=== PATIENT | female | born 1945 | race Caucasian/White ===

== ENCOUNTER → 2023-03-22 | Outpatient (CLI) | payer SELFPAY ==
--- NOTE | 2023-03-22 10:30 | RAD_ITS ---
STUDY: X-RAY CHEST REASON FOR EXAM: Female, 77 years old. 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 FINDINGS: Minor nonspecific interstitial thickening in the lower lobes. There is no demonstrated pleural abnormality. Normal size heart. Normal mediastinum and atif. Normal visualized pulmonary arteries. Mildly calcified aortic arch and descending thoracic aorta. Dorsal spine demonstrates mild spondylosis. Normal visualized ribs, clavicles, and shoulders. There is no demonstrated abnormality of the visualized soft tissue structures of the upper abdomen. RAD/Chest PA and Lateral IMPRESSION: Minor nonspecific interstitial thickening in the lower lobes.. Electronically Signed: Ambrose Barajas MD at 22:29 EST ,
[2023-03-22 12:21] LABS: Erythrocyte Sedimentation Rate 45 mm/hr (0-30)
[2023-03-22 12:24] LABS: Absolute Lymphocyte Count 3.55 X10^3/uL (0.83-4.51); Absolute Neutrophil Count 3.6 X10^3/uL (2.0-7.7); Basophil# 0.07 X10^3/uL; Basophil% 0.8 % (0-1); Eosinophil# 0.71 X10^3/uL; Eosinophils% 8.3 % (0-5); Hematocrit 38.7 % (37-47); Hemoglobin 12.2 g/dL (12.0-15.0); Lymphocyte # 3.55 X10^3/ul (0.83-4.51); Lymphocyte % 41.7 % (19-41); Mean Corp Hgb Conc 31.5 g/dL (32-36); Mean Corpuscular Volume 98.5 fL (81-99); Mean Platelet Vol. 10.2 fl (6.2-12.0); Monocyte# 0.62 X10^3/uL; Monocyte% 7.3 % (0-10); NRBC Flagged by Analyzer 0 % (0-5); Neutrophil # 3.55 X10^3/uL (2.7-7.7); Neutrophil % 41.7 % (47-70); Platelet Count 280 K/mm3 (150-450); RBC Distribution Width CV 13.9 % (11.6-14.6); RBC Distribution Width SD 51.1 fl (35.1-43.9); Red Blood Count 3.93 M/mm3 (4.2-5.4); White Blood Count 8.5 K/mm3 (4.4-11.0)
[2023-03-22 12:56] LABS: ALB/GLOB Ratio 0.8 RATIO (0.9-2.4); AST(SGOT) 25 U/L (15-37); Alanine Aminotransfer ALT/SGPT 28 U/L (13-56); Alkaline Phosphatase 77 U/L (45-117); Anion Gap 4 (5-15); BUN 28 mg/dL (7-18); BUN/Creat Ratio 21.5 RATIO (10-20); CRP 4.25 mg/L (0.0-3.0); Calcium,Total 9.7 mg/dL (8.5-10.1); Chloride 106 mmol/L (98-107); EST Glomerular Filtration Rate 42 mL/min (>60); Est Glom Filt Rate - Afr Amer 51 mL/min (>60); Globulin 4.8 g/dL (2.2-4.2); Glucose 101 mg/dL (74-106); Potassium 4.1 mmol/L (3.5-5.1); Protein, Total 8.8 g/dL (6.4-8.2); Sodium Level 138 mmol/L (136-145)
[2023-03-22 13:27] LABS: Hepatitis B Surface Antibody Non-Reactive; Hepatitis B Surface Antigen Non-Reactive (Nonreactive); Hepatitis C Antibody Non-Reactive (Nonreactive)
[2023-03-25 13:07] LABS: ANTINUCLEAR ANTIBODIES DIRECT Negative (Negative)
[2023-03-26 20:09] LABS: CCP IgG Antibodies 27 units (0-19); QNTFERON TB Mitogen Value > 10.00 IU/mL (.); QNTFERON TB Nil Value 0 IU/mL (.); QNTFERON TB1+ Ag Value 0 IU/mL (.); QNTFERON TB2+ Ag Value 0 IU/mL (.); QNTIFERON TB Positive Criteria Negative (Negative)
== END | disposition home or self-care (01) ==
PROVIDERS: PCP Family Medicine; Referring Provider Internal Medicine Rheumatology; Visit Provider Internal Medicine Rheumatology
DX: M06.09 Rheumatoid arthritis without rheumatoid factor, multiple sites (principal); Z79.899 Other long term (current) drug therapy; M17.0 Bilateral primary osteoarthritis of knee
CPT/HCPCS: 36415; 71046; 80053; 85025; 85652; 86038; 86140; 86200; 86431; 86480; 86706; 86803; 87340

== ENCOUNTER 2024-11-19 15:13 | Inpatient (IN) | payer SELFPAY, OTHER ==
[2024-11-19 15:38] VITALS: BP 151/71; PULSE 82; RESP 16; TEMP 36.9; O2SAT 96; BMI 28.3
[2024-11-19 16:33] VITALS: BMI 28.3
[2024-11-19 17:24] VITALS: BP 157/71; PULSE 82; RESP 16; TEMP 36.9; O2SAT 96
[2024-11-19 21:15] VITALS: PULSE 74; RESP 16; O2SAT 96; BMI 28.3
[2024-11-19] MEDS: Senna/Docusate Sodium 1 Tablet 2 TABLET PO (21:23)
[2024-11-19 22:00] VITALS: BP 138/76; PULSE 74; RESP 16; O2SAT 96
[2024-11-20] VITALS (9 sets, daily range): BP systolic 91–159; BP diastolic 52–79; PULSE 65–98; RESP 16–18; TEMP 36.8–37.2; O2SAT 93–98; BMI 28.3
[2024-11-20 05:58] LABS: Hematocrit 33.6 % (37-47); Hemoglobin 10.7 g/dL (12.0-15.0); Immature Granulocytes Count 0.040 X10^3/uL (0.0-0.0); Mean Corp Hgb Conc 31.8 g/dL (32-36); Mean Corpuscular Volume 106.7 fL (81-99); Mean Platelet Vol. 9.4 fl (6.2-12.0); NRBC Flagged by Analyzer 0 % (0-5); Platelet Count 270 K/mm3 (150-450); RBC Distribution Width CV 12.9 % (11.6-14.6); RBC Distribution Width SD 50.9 fl (35.1-43.9); Red Blood Count 3.15 M/mm3 (4.2-5.4); White Blood Count 10.2 K/mm3 (4.4-11.0)
[2024-11-20 06:14] LABS: Magnesium 2.6 mg/dL (1.5-2.2)
[2024-11-20 06:18] LABS: AST(SGOT) 22 U/L (<=31); Alanine Aminotransfer ALT/SGPT 8 U/L (<=34); Albumin, Serum 3.7 g/dL (3.4-4.8); Alkaline Phosphatase 69 U/L (35-104); Anion Gap 13 (5-15); BUN 29 mg/dL (4-19); BUN/Creat Ratio 21.1 RATIO (10-20); Calcium,Total 9.4 mg/dL (7.6-11.0); Carbon Dioxide 18.9 mmol/L (21.0-32.0); Chloride 105 mmol/L (98-108); Estimated Creatinine Clearance 31.20 ml/min (50-250); Globulin 3.6 g/dL (2.2-4.2); Glucose 87 mg/dL (70-99); Potassium 4.4 mmol/L (3.3-5.1)
--- NOTE | 2024-11-20 08:27 | EX.PCM.HP.RE ---
Documented by User: DARREN Florian 11/20/24 15:10 HPI - General General Date of Admission: 11/19/24 Date of Service: 11/20/24 Chief Complaint: debility following CVA HPI Narrative NICLO BLACK, is a 79 F who presents to the inpatient rehab unit from [facility] following CVA. She presented to their ED on 11/17/24, with R sided weakness. She had been, reportedly, weak for several days prior to admission. She did have a fall on 11/16/2024 which family believed to be from generalized weakness. Initial CT scan was negative for any acute processes. MRI/MRA of the brain demonstrated left basal ganglia acute infarct in the R internal capsule posterior limb 2. Right basal ganglia subacute infarct in the internal capsule posterior limb 3. A small signal abnormality in the left putamen. She had no corresponding restricted diffusion to suggest acute infarct. It was determined that she was not a tPA candidate. She was placed on dual antiplatelet therapy with Plavix and aspirin. She will continue to be on these for 21 days. A 30-day event monitor has been ordered to monitor for atrial fibrillation. She did experience high blood pressure during admission in which they initiated amlodipine and lisinopril. It appears that she does have remote history of hypertension but was not receiving any antihypertensive therapy, prior to hospitalization. These medications are new for her. She also has history of a arthritis, encephalitis and CKD III, per documentation. She did have blood work this morning showing a BUN of 29, a creatinine of 1.35 and a GFR of 39. These numbers are slightly improved compared to labs sent from previous hospital. Prior to admission the patient's hemoglobin was 11.2. Lab work this morning is significant for macrocytic anemia in which her hemoglobin is now 10.7. Will order stool Hemoccult to assist in evaluating anemia. Her lipid panel at [facility] did show HDLs of 87 and LDL was at 139 with a total cholesterol of 238. She was started on a statin by [facility]. Patient's echocardiogram at [facility] did show a EF of 60 to 65%, mild LVH and grade 1 diastolic. Mild aortic stenosis, peak and mean aortic the gradients 22 and 12 mmHg, mild MAC, mild LAE, mild TR. I met with Nicol in her room. She was sitting in a bedside recliner. She had been participating with therapies this morning. She states that at baseline she lives with her daughter and her family. She utilizes a walker to ambulate. She states that she has not been to [facility] and "2 months" she states that that is related to previous dizziness. She states that that dizziness has now resolved. She is hopeful to return to [facility] once she is discharged from rehab. She states that she does have a history of arthritis and has had bilateral knee replacements as well as a fractured humerus at the shoulder joint which she had repaired. She states that she does get pain in that shoulder intermittently. Nicol is eager to participate with therapies and is hopeful to return home. She is right-handed and her stroke did affect her right side. She is part of the [facility] community. She currently denies depression and states that she can see how she would get depressed but she does not allow herself. Nicol had no questions. Serum folate returned WNL at 17.4 and B12 WNL at 442. *Axela voice recognition software was utilized. Although all attempts were made to correct spelling and grammatical errors, there may be some inadvertently missed. 90 Minutes spent reviewing past diagnostic tests, lab results, vital sign trends, medical history, medications, all additional paperwork sent by the previous hospital, and ordering medications, examining the the patient and completing documentation. [facility] Medical History (Updated 11/20/24 @ 17:[address] Nicol Thomson, ) S/P stroke due to cerebrovascular disease Humerus distal fracture Rheumatoid arthritis Overweight (BMI 25.0-29.9) Encephalitis Mild aortic stenosis Stage 3 chronic kidney disease Hypertension Medical History no medical history no medical history (Arthritis) Home Medications Medication Instructions Recorded Last Taken Type acetaminophen 650 mg 650 mg PO Q8H PRN pain 11/19/24 Unknown History tablet,extended release (Arthritis Pain Relief (acetaminophen) ER) amlodipine 5 mg tablet 5 mg PO DAILY blood pessure 11/19/24 Unknown History aspirin 81 mg chewable tablet 1 tab PO DAILY heart 11/19/24 Unknown History atorvastatin 20 mg tablet (Lipitor) 20 mg PO QHS cholesterol 11/19/24 Unknown History clopidogrel 75 mg tablet (Plavix) 75 mg PO DAILY AFib 11/19/24 Unknown History hydroxychloroquine 200 mg tablet 200 mg PO BID arthritis 11/19/24 Unknown History lisinopril 20 mg tablet 20 mg PO DAILY blood pressure 11/19/24 Unknown History Allergy/AdvReac Type Severity Reaction Status Date / Time amoxicillin Allergy Unknown PT UNSURE Verified 11/19/24 15:36 OF REACTION oxycodone (From Percocet) Allergy Unknown PT UNSURE Verified 11/19/24 15:36 OF REACTION Family History unable to obtain no significant family history Surgical History (Updated 11/20/24 @ 17:[address] Nicol Thomson DO) History of open reduction and internal fixation (ORIF) procedure History of total knee arthroplasty Hx of cholecystectomy Surgical History no surgical history no surgical history (Patient has history of bilateral knee replacements. Right shoulder repair) Social History (Updated 11/20/24 @ 17:[address] Nicol Thomson DO) household members: spouse and other details: 's name is no housing: house number of children: 6 Smoking Status: Never smoker alcohol intake: never Prior Cardiac Testing/Procedures Prior Cardiac Testing/Procedures: Echocardiogram (See above HPI) ROS Constitutional Constitutional: Reports systems reviewed and no addt'l complaints, except as documented Eyes Eyes: Reports other Details: Cataracts ENT HEENT: Reports systems reviewed and no addt'l complaints, except as documented and halitosis Cardiovascular Cardiovascular: Reports systems reviewed and no addt'l complaints, except as documented and as per HPI Respiratory/Chest Respiratory/Chest: Reports systems reviewed and no addt'l complaints, except as documented Gastrointestinal Gastrointestinal: Reports systems reviewed and no addt'l complaints, except as documented Genitourinary Genitourinary: Reports systems reviewed and no addt'l complaints, except as documented Musculoskeletal Musculoskeletal: Reports joint stiffness and other Details: R shoulder repair from fall, bilateral knee replacements. Integumentary Integumentary: Reports systems reviewed and no addt'l complaints, except as documented Neurologic Neurologic: Reports weakness Psychiatric Psychiatric: Reports systems reviewed and no addt'l complaints, except as documented Endocrine Endocrinology: Reports systems reviewed and no addt'l complaints, except as documented Hematologic/Lymphatic Hematologic/Lymphatic: Reports easy bruising Allergic/Immunologic Allergic/Immunologic: Reports systems reviewed and no addt'l complaints, except as documented Vital Signs Vital Signs Vital Signs: 11/19/24 15:38 11/19/24 17:01 11/19/24 17:24 Temperature 98.5 F 98.5 F Temperature Source Temporal Temporal Pulse Rate 82 82 Pulse Strength Respiratory Rate 16 16 Respiratory Effort Normal Respiratory Depth Normal Respiratory Pattern Normal Blood Pressure 151/71 H 157/71 H Blood Pressure Mean 97 99 Blood Pressure Source Monitor Monitor Blood Pressure Position Semi-Fowlers Semi-Fowlers Blood Pressure Location Right Arm Left Arm Pulse Ox 96 96 Oxygen Delivery Method Room Air Room Air Room Air 11/19/24 21:15 11/19/24 21:15 11/19/24 22:00 Temperature Temperature Source Pulse Rate 74 74 Pulse Strength Normal (2+) Respiratory Rate 16 16 Respiratory Effort Normal Non-Labored Respiratory Depth Normal Respiratory Pattern Normal Blood Pressure 138/76 H Blood Pressure Mean 96 Blood Pressure Source Monitor Blood Pressure Position Supine Blood Pressure Location Right Arm Pulse Ox 96 96 Oxygen Delivery Method Room Air Room Air 11/20/24 05:00 Temperature 99.0 F Temperature Source Oral Pulse Rate 77 Pulse Strength Respiratory Rate 16 Respiratory Effort Respiratory Depth Respiratory Pattern Blood Pressure 159/71 H Blood Pressure Mean 100 Blood Pressure Source Monitor Blood Pressure Position Semi-Fowlers Blood Pressure Location Right Arm Pulse Ox 94 Oxygen Delivery Method Room Air Weight Weight: 160 lb 0.889 oz Body Mass Index (BMI) 28.3 Indicators for Scoring Admitted with or Primary Diagnosis of CVA/Stroke: Yes Hx of CVA/Stroke: Yes Modified Muse Score MRS Score at time of Evaluation: 4-Moderate/severe disability NIHSS NIHSS 1a. Level of Consciousness: 0 - Alert; keenly responsive 1b. LOC Questions: 0 - Answers BOTH questions correctly 1c. LOC Commands: 0 - Performs BOTH tasks correctly 2. Best Gaze: 0 - Normal 3. Visual: 0 - No visual loss 4. Facial Palsy: 1 - Minor paralysis (flattened nasolabial fold, asymmetry on smiling) 5a. Left Arm: 0 - No drift; arm holds 90 (or 45) degrees for full 10 seconds 5b. Right Arm: 1 - Drift; arm drifts downward but doesn’t hit the bed 6a. Left Le - No drift; leg holds 30-degree position for full 5 seconds 6b. Right Le - No effort against gravity; leg falls to bed immediately 7. Limb Ataxia: 2 - Present in 2 limbs 8. Sensory: 0 - Normal; no sensory loss 9. Best Language: 1 - [id number] aphasia; 10. Dysarthria: 1 = [id number] dysarthria; 11. Extinction and Inattention: 1 - Visual, tactile, auditory, spatial, or personal inattention; Total: 10 Physical Exam Const alert, oriented x3 and no apparent distress General Appearance: cooperative and well kempt Orientation / Consciousness: awake, oriented to person, oriented to place and oriented to time Exam Limitations: no limitations HEENT normocephalic Mouth: oral and palatal mucosa normal and other Other Details: Upper and lower dentures Eyes Eyes Narrative: Pupils are 4 mm with the left pupil being sluggish and the right pupil being brisk. Neck full ROM Lymph Lymphatic: no lymphadenopathy noted Chest inspection of chest normal Chest: symmetrical chest wall rise Resp normal respiratory effort, normal air movement, no use of accessory muscles and clear to auscultation bilaterally Effort and Inspection: able to speak in complete sentences Auscultation: clear to auscultation bilaterally Cardio regular rate and regular rhythm Rhythm: regular rhythm Heart Sounds: S1 normal and S2 normal Peripheral Pulses: pulses 2+ throughout GI normal to inspection, nondistended, normoactive bowel sounds Palpation: soft no CVA tenderness Back/Spine no CVA tenderness Extremity normal to inspection General Extremity: other findings Other Details: And hose in place Peripheral Pulses: Yes pulses 2+ throughout Skin no rashes or lesions noted Skin Narrative: Some bruising to bilateral forearms Neuro oriented x3 Neuro Narrative: See NIH Sensorium / Orientation: awake, alert, oriented to person, oriented to place and oriented to time Psych mental status grossly normal Appearance: well kempt Attitude: calm and engaged Activity / Motor Behavior: appropriate eye contact Results Lab / Micro Data Attestation: I reviewed the patient's lab results. Lab results narrative: Macrocytic anemia noted. Patient has history of CKD 3 and lab results are consistent with previous. 11/20/24 05:33 11/20/24 05:33 Labs: Laboratory Results - last 24 hr 11/20/24 05:33: WBC 10.2, RBC 3.15 L, Hgb 10.7 L, Hct 33.6 L, MCV 106.7 H, MCH 34.0 H, MCHC 31.8 L, RDW Std Deviation 50.9 H, RDW Coeff of Jennifer 12.9, Plt Count 270, MPV 9.4, Immature Gran % (Auto) 0.400, Neut % (Auto) 60.8, Lymph % (Auto) 26.6, Ashe % (Auto) 8.9, Eos % (Auto) 2.5, Baso % (Auto) 0.8, Absolute Neuts (auto) 6.2, Absolute Lymphs (auto) 2.71, Nucleated RBC % 0, Sodium 137, Potassium 4.4, Chloride 105, Carbon Dioxide 18.9 L, Anion Gap 13, BUN 29 H, Creatinine 1.35 H, Estim Creat Clear Calc 31.20 L, Est GFR (MDRD) Non-Af 39 L, BUN/Creatinine Ratio 21.1 H, Glucose 87, Calcium 9.4, Phosphorus 3.7, Magnesium 2.6 H, Total Bilirubin 0.36, AST 22, ALT 8, Alkaline Phosphatase 69, Total Protein 7.3, Albumin 3.7, Globulin 3.6, Albumin/Globulin Ratio 1.0 Imaging MRI/MRI results COMBINATION OPERATOR: Acute ischemic infarct involving the left basal ganglia and the internal capsule posterior limb. Subacute infarct in involving the left basal ganglia. Subacute and internal capsule posterior limb. Assessment & Plan Assessment/Plan (1) Debility: PLAN: *continue therapies *Fall precautions *Monitor I's and O's *Weekly weights *PT for gait stability *OT for ADLs *ST for evaluation *Bowel protocol (2) S/P stroke due to cerebrovascular disease: PLAN: *Plavix 75 mg p.o. daily *Aspirin 81 mg p.o. daily *DVT prophylaxis: Heparin 5000 units SQ every 12 hours *JOSE GUADALUPE hose *Monitor neurological status *Assess for anxiety and depression. 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 daily *Lisinopril 20 mg p.o. daily *Low-salt low-cholesterol cardiac diet (8) Hyperlipidemia: QUALIFIERS: Hyperlipidemia type: unspecified Qualified Code(s): E78.5 - Hyperlipidemia, unspecified PLAN: *Lipitor 20 mg p.o. nightly (9) Macrocytic anemia: PLAN: *Hemoccult stool *Serum B12 level *Serum folate level *Monitor CBC every 3 days (10) Encephalitis: (11) Rheumatoid arthritis: QUALIFIERS: Rheumatoid arthritis location: unspecified site (12) Overweight (BMI 25.0-29.9): (13) Mild aortic stenosis: (14) Stage 3 chronic kidney disease: QUALIFIERS: Chronic kidney disease stage 3 subtype: stage 3b (GFR 30-44) Qualified Code(s): N18.32 - Chronic kidney disease, stage 3b Charges/Coding Visit Charges Inpatient E&M: 33516 Init Hosp L2 Documented by User: Dr. Nicol Thomson DO 11/20/24 17:48 HPI - General General Date of Admission: 11/19/24 HPI Narrative NICOL BLACK, is a 79 F who presents to the inpatient rehab unit from [facility] following CVA. She presented to their ED on 11/17/24, with R sided weakness. She had been, reportedly, weak for several days prior to admission. She did have a fall on 11/16/2024 which family believed to be from generalized weakness. Initial CT scan was negative for any acute processes. MRI/MRA of the brain demonstrated left basal ganglia acute infarct in the R internal capsule posterior limb 2. Right basal ganglia subacute infarct in the internal capsule posterior limb 3. A small signal abnormality in the left putamen. She had no corresponding restricted diffusion to suggest acute infarct. It was determined that she was not a tPA candidate. She was placed on dual antiplatelet therapy with Plavix and aspirin. She will continue to be on these for 21 days. A 30-day event monitor has been ordered to monitor for atrial fibrillation. She did experience high blood pressure during admission in which they initiated amlodipine and lisinopril. It appears that she does have remote history of hypertension but was not receiving any antihypertensive therapy, prior to hospitalization. These medications are new for her. She also has history of a arthritis, encephalitis and CKD III, per documentation. She did have blood work this morning showing a BUN of 29, a creatinine of 1.35 and a GFR of 39. These numbers are slightly improved compared to labs sent from previous hospital. Prior to admission the patient's hemoglobin was 11.2. Lab work this morning is significant for macrocytic anemia in which her hemoglobin is now 10.7. Will order stool Hemoccult to assist in evaluating anemia. Her lipid panel at [facility] did show HDLs of 87 and LDL was at 139 with a total cholesterol of 238. She was started on a statin by [facility]. Patient's echocardiogram at [facility] did show a EF of 60 to 65%, mild LVH and grade 1 diastolic. Mild aortic stenosis, peak and mean aortic the gradients 22 and 12 mmHg, mild MAC, mild LAE, mild TR. I met with Nicol in her room. She was sitting in a bedside recliner. She had been participating with therapies this morning. She states that at baseline she lives with her daughter and her family. She utilizes a walker to ambulate. She states that she has not been to [facility] and "2 months" she states that that is related to previous dizziness. She states that dizziness has now resolved. She is hopeful to return to [facility] once she is discharged from rehab. She states that she does have a history of arthritis and has had bilateral knee replacements as well as a fractured humerus at the shoulder joint which she had repaired. She states that she does get pain in that shoulder intermittently. Nicol is eager to participate with therapies and is hopeful to return home. She is right-handed and her stroke did affect her right side. She is part of the [facility] community. She currently denies depression and states that she can see how she would get depressed but she does not allow herself. Nicol had no questions. Serum folate returned WNL at 17.4 and B12 WNL at 442. *Axela voice recognition software was utilized. Although all attempts were made to correct spelling and grammatical errors, there may be some inadvertently missed. 90 Minutes spent reviewing past diagnostic tests, lab results, vital sign trends, medical history, medications, all additional paperwork sent by the previous hospital, and ordering medications, examining the the patient and completing documentation. [facility] Medical History (Updated 11/20/24 @ 17:[address] Nicol Thomson, ) S/P stroke due to cerebrovascular disease Humerus distal fracture Rheumatoid arthritis Overweight (BMI 25.0-29.9) Encephalitis Mild aortic stenosis Stage 3 chronic kidney disease Hypertension Medical History no medical history Home Medications Medication Instructions Recorded Last Taken Type acetaminophen 650 mg 650 mg PO Q8H PRN pain 11/19/24 Unknown History tablet,extended release (Arthritis Pain Relief (acetaminophen) ER) amlodipine 5 mg tablet 5 mg PO DAILY blood pessure 11/19/24 Unknown History aspirin 81 mg chewable tablet 1 tab PO DAILY heart 11/19/24 Unknown History atorvastatin 20 mg tablet (Lipitor) 20 mg PO QHS cholesterol 11/19/24 Unknown History clopidogrel 75 mg tablet (Plavix) 75 mg PO DAILY AFib 11/19/24 Unknown History hydroxychloroquine 200 mg tablet 200 mg PO BID arthritis 11/19/24 Unknown History lisinopril 20 mg tablet 20 mg PO DAILY blood pressure 11/19/24 Unknown History Allergy/AdvReac Type Severity Reaction Status Date / Time amoxicillin Allergy Unknown PT UNSURE Verified 11/19/24 15:36 OF REACTION oxycodone (From Percocet) Allergy Unknown PT UNSURE Verified 11/19/24 15:36 OF REACTION Family History unable to obtain Surgical History (Updated 11/20/24 @ 17:[address] Nicol Thomson DO) History of open reduction and internal fixation (ORIF) procedure History of total knee arthroplasty Hx of cholecystectomy Surgical History no surgical history Social History (Updated 11/20/24 @ 17:[address] Nicol Thomson DO) household members: spouse and other details: 's name is no housing: house number of children: 6 Smoking Status: Never smoker alcohol intake: never ROS ENT HEENT: Reports abnormal hearing, vertigo and other Details: She has bilateral hearing aids. Denies dysphagia. Cardiovascular Cardiovascular: Reports other Details: Denies any syncopal episodes ; Denies chest pain, dyspnea at rest or leg edema Respiratory/Chest Respiratory/Chest: Denies cough, difficulty clearing secretions, dry cough or hemoptysis Gastrointestinal Gastrointestinal: Denies change in stool character, constipation, dysphagia, nausea or odynophagia Genitourinary Genitourinary: Denies dysuria Neurologic Neurologic: Reports abnormal gait, abnormal speech, disequilibrium, dizziness, focal weakness and other Details: She has had confusion and trouble with slow thought processing since she had Encephalitis in August. Indicators for Scoring Hx of CVA/Stroke: No NIHSS NIHSS Total: 10 Stroke Questions Stroke Team Activated: No Physical Exam HEENT head/scalp atraumatic HEENT Narrative: Has BL hearing aids. MM are dry. No thrush Eyes EOMs intact bilaterally, conjunctivae normal and no scleral icterus Eyes Narrative: Pupils are 4 mm with the left pupil being sluggish and the right pupil being brisk. No discharge from the eyes and no mattering of the eyelashes. General Eye: Negative for proptosis Neck supple, no meningeal signs, No nodes and no carotid bruits General: trachea midline Resp Resp Narrative: Decreased air exchange, paulo in the bases. Few coarse crackles in the bases. No wheezing. Not tachypneic, no cough and no conversational dyspnea. Cardio no rub and no gallops Cardio Narrative: No ectopy. she has a soft HEBER at the second RICS with no radiation to the LVOT, LLSB or apex. GI GI Narrative: No guarding with palpation. Denies constipation and diarrhea. Denies hematochezia. Extremity no calf tenderness and no pedal edema General Extremity: other findings Other Details: JOSE GUADALUPE daigle in place Psych denies hallucinations Psych Narrative: Slow to process information. Trouble word finding. Looks to her family to answer questions that I ask her when she can not come up with an answer. 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 Confused. Not fidgety, not restless. She is calm and pleasant. No agitation. Makes good eye contact with me and is engaged in the conversation. No history of anxiety or depression. 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 nightly (9) Macrocytic anemia: PLAN: *Hemoccult stool *Serum B12 level *Serum folate level (10) Encephalitis: (11) Rheumatoid arthritis: QUALIFIERS: Rheumatoid arthritis location: unspecified site (12) Overweight (BMI 25.0-29.9): (13) Mild aortic stenosis: (14) Stage 3 chronic kidney disease: QUALIFIERS: Chronic kidney disease stage 3 subtype: stage 3b (GFR 30-44) Qualified Code(s): N18.32 - Chronic kidney disease, stage 3b PLAN: Plan I reviewed the H&P done by the CURRENCY EXCHANGE SPECIALIST and also reviewed all the documentation we received from [facility]. I talked with the patient and her family and answered their questions. I examined the pt. I agree with the findings of the CURR[employer] EXCHANGE SPECIALIST and added a few details. We discussed the plan of care. PLAN PT for gait stability OT for ADL's ST for evaluation Analgesics as needed - she uses Tylenol extra strength for pain control at home and this is all she takes for arthritic pain. Bowel protocol Fall precautions Assess for Anxiety/Depression GI prophylaxis -not indicated at this time. She denies heartburn, epigastric pain, nausea/vomiting. She has no history of peptic ulcer disease. Hemoccult stool was ordered and it it is positive we will add a PPI since she is on dual antiplatelet agents. DVT prophylaxis with heparin 5000 units subcu every 12 hours Follow up with PCP, neurology following DC from [facility]. Will also need to follow up with cardiology if there is any PAF on the 30 day event monitor when it is removed. AM lab including CMP, CBC, Mag and Phos - personally reviewed. Folate and B12 are normal and she had a normal TSH within the past 6 months. Increase the statin to a high intensity statin.........changed atorvastatin to 40 mg. Heme stool ordered. Straight cath for a UA PVR's X 3. Recheck a BMP and CBC on Saturday. Will need a lipid panel and liver profile in 6 weeks. 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 Since she has had strokes on both sides of the brain I suspect they are embolic. Continue dual antiplatelet agents for a total of 3 weeks and then discontinue clopidogrel. Her dtr tells me that she was taken off her antihypertensives when she had meningoencephalitis this past summer because she was hypotensive. Charges/Coding Visit Charges Inpatient E&M: 68485 Init Hosp L3
[2024-11-20] MEDS: Heparin Injection (Vial) 5,000 UNIT/ML VIAL 5000 UNIT SC ×2 (09:20→22:25)
[2024-11-20] MEDS: Aspirin E.C. 81 MG Tablet PO (09:20)
[2024-11-20] MEDS: Senna/Docusate Sodium 1 Tablet 2 TABLET PO ×2 (09:20→22:27)
--- NOTE | 2024-11-20 10:51 | REHABEVAL_ITS ---
Documented by User: DARREN Florian 11/20/24 20:19 Admission Information Primary Diagnosis:: Debility related to CVA Status Changes from Prescreening?: No changes Identified Actual Problem List:: Falls, Mobility Impaired, Self Care Deficit, Know.Dfct/Disease Process, Know.Dfct of Medicaitons, BP, Hypertension, Fluid Change-Dehydration and Alteration-Leisure Activ. Potential Problem List:: DVT, Bleeding, Infection, UTI, Aspiration, Falls, Skin Integrity and Depression Risk of Complications DVT: LMWH (heparin) and JOSE GUADALUPE Hose Bleeding: Monitor Lab Values, Nursing to Teach Precautions for anti-coagulation therapy., Wound, if applicable, to be assessed every shift. and Stroke patients assessed for lethargy or change in status. Infection: Clinical Staff to Monitor for S/S of infection: and S/S of infection include fever, redness, warmth, etc. Urinary Tract Infection: Monitor for frequency, burning, discomfort, or incontinence. and Nursing will obtain urine sample for urinalysis and C&S when ordered. Aspiration: Clinical staff will monitor for coughing, drooling, congestion., Speech will evaluate swallowing and dsyphasia. and Nursing will monitor patient swallowing during meals. Falls: Patient will be evaluated for Fall Precautions and Patient will be placed on Fall Precautions as indicated per protocol. Skin Breakdown: Nursing will assess skin daily using assessment tool. and Nursing will place on Skin Breakdown Precautions as indicated. Pain: Clinical staff will assess patient's pain level per protocol., Medications will be given, if needed, and the pain level reassessed. and Other methods: Massage, distraction, decrease stimulus, etc. used PRN. Plan of Care Patient requires physician specializing in physical medicine and rehab oversight to provide close medical supervision of rehab issues including: Medical and co- morbidity Management, DVT prophylaxis and Coordination of treatment team Patient needs Physical Therapy: For a minimum of 1 hour and At least 5 out of 7 days Patient needs Physical Therapy to improve:: Mobility, Strengthening, Transfers, Stretching, ROM, Endurance, Stairs, Gait and Balance Patient needs Occupational Therapy: For a minimum of 1 hour and At least 5 out of 7 days Patient needs Occupational Therapy to improve ADL's incl.: Eating, Grooming, Bathing, Dressing, Toileting, Toilet transfers, Community Reintegration, Higher functioning activities, Household tasks, Adaptive Equipment, Splinting and Other activities as determined Patient requires speech therapy: For a minimum of 1 hour and At least 5 out of 7 days Patient requires speech therapy for: Swallowing, Cognition, Language Skills and Compensatory Strategies Patient requires 24/7 Rehabilitation Nursing for: Pain Issues, Identifying and preventing risk factors, Monitoring and reporting current medical conditions, Assisting with ambulation, transfer, and all ADL's, Teaching patients about disease process and medications, Family teaching, Providing safe environment, Bowel and Bladder Issues, Skin integrity and Medication Management Patient needs Desulphurizer Operator/ Case Management for: Discharge Planning, Arranging Home Equipment or Services and Family Interventions Patient needs Dietary and Nutrition Services for: Adequate Nutrition, Nutritional Supplements and Nutritional Education Goals Goals Patient will remain: free from falls and or injury at time of discharge. Patient will perform bed mobility at: MOD I level of assist. Patient will complete transfers from bed to chair at: MOD I level of assist. Patient will ambulate: 100 feet, with standby assist and with LRD Patient will complete upper body dressing at: Standby Assist. (Contact-guard assist) Patient will complete lower body dressing at: MOD I level of assist. (Min ass ist) Patient will complete toilet transfer at: Standby Assist. (Contact-guard assist) Patient will complete toileting at: Standby Assist. (Contact-guard assist) Patient will perform bathing at: MOD I level of assist. Patient will perform Tub/Shower transfer at: Standby Assist. Patient will complete grooming at: MOD I level of assist. Patient will complete home management skills at: Standby Assist. Patient will achieve: with standby assist and - (1 curb step) Patient will have pain level of: of 3 or less Patient's skin will: remain intact Patient will receive: adequate nutrition. Discharge Planning Pt Prognosis for Sig. Practical Improv. w/in Reasonable Time: Good Anticipated D/C Destination: Home Documented by User: Dr. Melisa Thomson DO 09/26/25 17:55 Admission Information Actual Problem List:: Cognitve Impr/Memory Loss and Bladder Incontinence Risk of Complications DVT: - (Heparin 5000 units SQ every 12 hours) Plan of Care Patient requires physician specializing in physical medicine and rehab oversight to provide close medical supervision of rehab issues including: Pain Management, Sleep Problems, Bowel and Bladder and Rehabilitation Leadership Goals Goals Patient will perform eating at: MOD I level of assist. Patient will complete transfers from bed to chair at: Standby Assist. Patient will ambulate: - (165 feet with least restrictive device at standby assist on various surfaces) Patient will complete upper body dressing at: - (Contact-guard assist) Patient will complete lower body dressing at: - (Min assist) Patient will complete toilet transfer at: - (Contact-guard assist) Patient will complete toileting at: - (Contact-guard assist) Patient will perform Tub/Shower transfer at: Standby Assist. Patient will achieve: - (6+1 steps at contact-guard assist with 1-2 handrails to allow access to her home.) Discharge Planning Estimated Length of stay (days): 28 Anticipated D/C Destination: Home with Home Health Was Preadmission Assessment Accurate?: Yes
[2024-11-20 11:11] LABS: Vitamin B12 442 pg/mL (180-914)
[2024-11-20 13:22] LABS: FOLATES,SERUM (FOLIC ACID) 17.90 ng/mL (4.60-34.80)
[2024-11-21 06:00] VITALS: BP 126/63; RESP 18; TEMP 37.7; O2SAT 97
[2024-11-21] MEDS: Senna/Docusate Sodium 1 Tablet 2 TABLET PO (07:56)
[2024-11-21] MEDS: Aspirin E.C. 81 MG Tablet PO (07:57)
[2024-11-21 08:00] VITALS: BP 114/71; PULSE 71
[2024-11-21 08:57] LABS: Mucous, Urine 0 SEEN /hpf (<or=2+); Red Blood Cells-Urine 0 SEEN /hpf (0-5)
[2024-11-21 08:59] LABS: Color, Urine Yellow (Yellow); Glucose, Dipstick Normal (Normal); Ketone-Dipstick Negative (Negative); Leukocyte Esterase-Dipstick 500 /ul (Negative); Nitrite-Dipstick Negative (Negative); Occult Blood-Urine 50 /ul (Negative); Protein-Dipstick 30 mg/dl (Negative); Specific Gravity, Urine 1.010 (1.002-1.030); Urine Bilirubin Dipstick Negative (Negative)
[2024-11-21 09:12] LABS: Squamous Epithelial Cells - UA 0-5 SEEN /hpf (5-10)
[2024-11-21] MEDS: Heparin Injection (Vial) 5,000 UNIT/ML VIAL 5000 UNIT SC ×2 (11:02→20:59)
[2024-11-21 13:07] VITALS: BP 121/62; PULSE 78
[2024-11-21 13:51] VITALS: BMI 28.3
[2024-11-21 18:00] VITALS: BP 126/57; PULSE 78; RESP 16; TEMP 37.2; O2SAT 97
[2024-11-21 22:00] VITALS: BP 128/71; PULSE 79; RESP 16; O2SAT 94
[2024-11-21 22:05] VITALS: PULSE 78; RESP 16; O2SAT 95
[2024-11-22 05:00] VITALS: BMI 28.3
[2024-11-22 06:00] VITALS: BP 146/75; PULSE 72; RESP 17; TEMP 36.6; O2SAT 100
[2024-11-22] MEDS: Aspirin E.C. 81 MG Tablet PO (07:41)
[2024-11-22 07:50] VITALS: BP 133/59; PULSE 70
[2024-11-22] MEDS: Heparin Injection (Vial) 5,000 UNIT/ML VIAL 5000 UNIT SC ×2 (09:23→20:40)
[2024-11-22] MEDS: Smz/Tmp Ds Tablet 1 TABLET PO ×2 (09:24→20:40)
[2024-11-22 14:00] VITALS: BP 102/56; PULSE 74
[2024-11-22 15:57] VITALS: BMI 28.3
[2024-11-22 17:59] VITALS: BP 112/59; PULSE 84; RESP 16; TEMP 36.9; O2SAT 98
[2024-11-22 20:20] VITALS: BMI 28.3
[2024-11-22] MEDS: Senna/Docusate Sodium 1 Tablet 2 TABLET PO (20:48)
[2024-11-22 20:50] VITALS: PULSE 83; RESP 16; O2SAT 96
[2024-11-22 22:00] VITALS: BP 115/59; PULSE 83
[2024-11-23 01:30] VITALS: PULSE 75; RESP 16; O2SAT 95
[2024-11-23 06:00] VITALS: BP 135/66; PULSE 77; RESP 16; TEMP 36.7; O2SAT 99
[2024-11-23 06:56] VITALS: BMI 28.0
[2024-11-23 07:52] LABS: Hematocrit 34.1 % (37-47); Hemoglobin 10.6 g/dL (12.0-15.0); Immature Granulocytes Count 0.030 X10^3/uL (0.0-0.0); Mean Corp Hgb Conc 31.1 g/dL (32-36); Mean Corpuscular Volume 106.6 fL (81-99); Mean Platelet Vol. 10.0 fl (6.2-12.0); NRBC Flagged by Analyzer 0 % (0-5); Platelet Count 297 K/mm3 (150-450); RBC Distribution Width CV 12.4 % (11.6-14.6); RBC Distribution Width SD 48.7 fl (35.1-43.9); Red Blood Count 3.20 M/mm3 (4.2-5.4); White Blood Count 8.8 K/mm3 (4.4-11.0)
[2024-11-23] MEDS: Heparin Injection (Vial) 5,000 UNIT/ML VIAL 5000 UNIT SC ×2 (08:04→21:44)
[2024-11-23] MEDS: Senna/Docusate Sodium 1 Tablet 2 TABLET PO ×2 (08:05→21:44)
[2024-11-23] MEDS: Aspirin E.C. 81 MG Tablet PO (08:05)
[2024-11-23] MEDS: Smz/Tmp Ds Tablet 1 TABLET PO (08:05)
[2024-11-23 08:20] LABS: Anion Gap 15 (5-15); BUN 47 mg/dL (4-19); BUN/Creat Ratio 25.3 RATIO (10-20); Calcium,Total 9.9 mg/dL (7.6-11.0); Carbon Dioxide 19.1 mmol/L (21.0-32.0); Chloride 104 mmol/L (98-108); Estimated Creatinine Clearance 22.39 ml/min (50-250); Glucose 90 mg/dL (70-99); Potassium 4.6 mmol/L (3.3-5.1)
--- NOTE | 2024-11-23 09:05 | PCM.PROGNOTE ---
Subjective Subjective Melisa was seen on team rounds today. Her son Lobito participated by phone. Afebrile VSS - Maintaining appropriate oxygen saturation on RA Oral intake - FOOD good FLUIDS urine outputs are not accurate secondary to urinary incontinence. The weight is down 2 pounds since admission. Discussed with nursing - nursing today reports she seems more confused and less aware and slower to answer questions than she was on Saturday. Reviewed the THERAPY notes Medication list reviewed. All lab from today was personally reviewed. The white blood cell count is down to 8.8 from 10.2. Differential is unremarkable. Hemoglobin is stable at 10.6 and platelets are within normal limits. The BUN is 47, up from 29 on 11/20/2024. Creatinine is 1.87 which is up from 1.35 on 11/20/2024. UA done on 11/20/2024 had 5-10 WBCs with +1 bacteria. Urine culture grew Proteus Hauseri that is resistant to ampicillin and nitrofurantoin. It is intermediately sensitive to ceftriaxone. She was started on Bactrim yesterday. Stool for occult blood was negative. Objective Data Objective Data Vital Signs: Vital Signs Temp Pulse Resp BP Pulse Ox O2 Del Method O2 Flow Rate 98.0 F 77 16 135/66 H 99 Nasal Cannula 2 11/23/24 06:00 11/23/24 06:00 11/23/24 06:00 11/23/24 06:00 11/23/24 06:00 11/23/24 06:00 11/23/24 06:00 FiO2 21 11/20/24 21:55 Oxygen Flow Rate (L/min) 2 Oxygen Delivery Method Nasal Cannula Weight: 158 lb 1.143 oz Body Mass Index (BMI) 28.0 Intake & Output: Intake and Output for Last 24 Hours 11/21/24 11/22/24 11/23/24 23:59 23:59 23:59 Intake Total 1505 / 1505 1420 / 1420 770 / 770 Output Total 650 / 650 675 / 675 Balance 855 / 855 745 / 745 770 / 770 Lab / Micro Data 11/23/24 07:33 11/23/24 07:33 Labs: Laboratory Results - last 24 hr 11/23/24 07:33: WBC 8.8, RBC 3.20 L, Hgb 10.6 L, Hct 34.1 L, MCV 106.6 H, MCH 33.1 H, MCHC 31.1 L, RDW Std Deviation 48.7 H, RDW Coeff of Jennifer 12.4, Plt Count 297, MPV 10.0, Immature Gran % (Auto) 0.300, Neut % (Auto) 60.1, Lymph % (Auto) 27.9, [place] % (Auto) 9.2, Eos % (Auto) 1.9, Baso % (Auto) 0.6, Absolute Neuts (auto) 5.3, Absolute Lymphs (auto) 2.45, Nucleated RBC % 0, Sodium 138, Potassium 4.6, Chloride 104, Carbon Dioxide 19.1 L, Anion Gap 15, BUN 47 H, Creatinine 1.87 H, Estim Creat Clear Calc 22.39 L, Est GFR (MDRD) Non-Af 27 L, BUN/Creatinine Ratio 25.3 H, Glucose 90, Calcium 9.9 Micro: Microbiology 11/20/24 18:50 Urine Catheter - Catheter Urine Culture - Final Proteus hauseri 11/20/24 16:10 Stool Stool Occult Blood (ROSALBA) - Final Physical Exam Const no apparent distress Constitutional Narrative: She is awake but, definitely slower to answer questions today. General Appearance: cooperative HEENT HEENT Narrative: MM are a little dry. Has had decent fluid intake in the past 3 days. No idea of what the urine OP has been since she is incontinent of urine. Resp normal respiratory effort, normal air movement and clear to auscultation bilaterally Resp Narrative: No cough with deep breathing. Effort and Inspection: Negative for tachypneic Cardio regular rate, regular rhythm, no rub and no gallops GI normal to inspection, nondistended, normoactive bowel sounds, soft to palpation and non-tender GI Narrative: No constipation. No guarding with palpation. No N/V/abd pain. Extremity no calf tenderness General Extremity: Negative for edema Skin Rashes: no rashes Wounds: Negative for wounds noted Assessment & Plan Assessment/Plan (1) Debility: (2) S/P stroke due to cerebrovascular disease: (3) 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: (4) Dysarthria: (5) Hemiplegia affecting right dominant side: QUALIFIERS: Hemiplegia type: flaccid Hemiplegia etiology: late effect of cerebrovascular disease Cerebrovascular disease type: cerebral infarction Qualified Code(s): I69.351 - Hemiplegia and hemiparesis following cerebral infarction affecting right dominant side (6) Aphasia complicating stroke: (7) Essential hypertension: (8) Hyperlipidemia: QUALIFIERS: Hyperlipidemia type: unspecified Qualified Code(s): E78.5 - Hyperlipidemia, unspecified (9) Macrocytic anemia: (10) Encephalitis: (11) Rheumatoid arthritis: QUALIFIERS: Rheumatoid arthritis location: unspecified site (12) Overweight (BMI 25.0-29.9): (13) Mild aortic stenosis: (14) Stage 3 chronic kidney disease: QUALIFIERS: Chronic kidney disease stage 3 subtype: stage 3b (GFR 30-44) Qualified Code(s): N18.32 - Chronic kidney disease, stage 3b (15) Acute renal failure superimposed on stage 3b chronic kidney disease: PLAN: Etiology not known at this time. W/U is in progress. PLAN: Plan 1. Continue therapy 2. Check another postvoid residual to ensure that she is not retaining and that is not the etiology of the elevated creatinine. I do not feel comfortable keeping her on Bactrim with the big jump in the creat. D/W pharm D. will DC Bactrim and change to Cefepime. She lists amoxicillin as an allergy but, does not know the reaction and although there is a chance of cross reactivity would prefer Cefepime to a FQ. Pharmacy will renally dose. 3. Recheck a BMP in the AM. 4. check orthostatics today. 5. Consider inserting a Abarca for accurate I&O for the next 48 hours. 6. renal US she scored only 16/50 on her BCAT. Family tells me that she has had some confusion since she had encephalitis in August of this year. Slow thought processing. [facility] Charges/Coding Visit Charges Inpatient E&M: 66480 Subs Hosp L2
[2024-11-23 11:19] VITALS: BMI 28.0
[2024-11-23 12:03] VITALS: BP 128/60; BP 128/66; BP 130/49; PULSE 77; PULSE 78; PULSE 85
--- NOTE | 2024-11-23 12:20 | US_ITS ---
PROCEDURE: KIDNEY AND BLADDER 11/23/2024 REASON FOR EXAM: ARF TECHNIQUE: Procedure Code: USKI Modality: US Procedure: KIDNEY AND BLADDER COMPARISON: none FINDINGS: Right kidney measures 6.8 cm and left kidney measures 8.7 cm. Atrophic right kidney with cortical thinning. Cortical thinning within the left kidney also noted. Normal echotexture of bilateral kidneys. Question trace right hydronephrosis. No renal stones. Cystic structure with septations noted within the midpole of the left kidney measuring 1.2 x 1.1 x 1.1 cm. Urinary bladder is unremarkable with terrell within. US/Kidney and Bladder IMPRESSION: Question trace right hydronephrosis. Atrophic right kidney. 1.2 cm complex cyst within the left kidney. No hydronephrosis of the left. Reading Location: [id number]
--- NOTE | 2024-11-23 12:49 | CASEMGMT ---
Social Work IDT met with patient at bedside for Team meeting. SW left VM for dtr, Nathalia, and there is not a different number for her . Pt selected to call son, Harjit, who participated via phone. Discussed patient's progress in PT/OT/ST/SN/MD/[facility] Liaison. Pt is admitted under her [facility] Fund 2, for initially at 7 days and IDT stated goal ELOS is about 21 days. [facility] Liaison to request additional funds. Son kept asking "are you talking to me?" with each report. Reiterated pt will need additional time for nursing and therapy care. SW will continue to follow for DC planning. Jessica Ewing USPS LETTER CARRIER [employer]LINE PILOT
[2024-11-23] MEDS: Cefepime HCl 2 GM in 0.9% Normal Saline (100mL MB+) 100 ML IV (13:29)
[2024-11-23] MEDS: 0.9% Normal Saline (500mL Bag) 500 ML 999 ML IV (13:35)
[2024-11-23] MEDS: 0.9% Normal Saline (1000mL) 1,000 ML 75 ML IV (14:50)
--- NOTE | 2024-11-23 15:59 | CHAPLAIN ---
Type of Pastoral Visit _x__ Initial Visit ___ Follow-up Visit ___ On-call Visit ___ General Patient Visit ___ Spiritual Assessment ___ Family Conference ___ Bereavement ___ Rapid Response ___ Code Blue ___ Other (describe below) Pastoral Care Referral From _x__ Patient ___ Family ___ Nurse ___ Physician ___ Telecommunications Cable Jointer ___ Phone Operator ___ Other (describe below) Sacrament/Intervention _x__ Active listening ___ Anointing ___ Cheondoism ___ Bereavement ___ Communion _x__ Jacki exploration ___ _x__ Life review _x__ Prayer ___ Reconciliation ___ Sacrament of Sick ___ Supportive presence ___ Wedding ___ Other (describe below) Pastoral Comments patient admits to disappointment that her progress is slow and minimal; pt does recognize the importance of having prayer and spiritual care support; pt reports having support from family and can name some blessings of life and from God that encourages her to persevere; pt welcomes prayer
[2024-11-23 17:41] VITALS: BP 137/68; PULSE 80; RESP 18; TEMP 37.2; O2SAT 95
[2024-11-23 20:26] VITALS: BMI 28.0
[2024-11-23 20:34] VITALS: PULSE 80; RESP 15; O2SAT 94
[2024-11-24 00:31] VITALS: RESP 16; O2SAT 97
[2024-11-24 00:40] VITALS: BP 132/66; PULSE 82; RESP 16; TEMP 37; O2SAT 97
[2024-11-24] MEDS: 0.9% Normal Saline (1000mL) 1,000 ML 75 ML IV ×2 (04:29→18:12)
[2024-11-24 05:50] VITALS: BP 126/56; PULSE 64; RESP 16; TEMP 36.4; O2SAT 96
[2024-11-24 06:00] VITALS: BMI 29.2
[2024-11-24] MEDS: Aspirin E.C. 81 MG Tablet PO (08:10)
[2024-11-24] MEDS: Heparin Injection (Vial) 5,000 UNIT/ML VIAL 5000 UNIT SC ×2 (08:11→20:44)
[2024-11-24] MEDS: Senna/Docusate Sodium 1 Tablet 2 TABLET PO ×2 (08:11→20:49)
[2024-11-24 08:43] LABS: Anion Gap 10 (5-15); BUN 37 mg/dL (4-19); BUN/Creat Ratio 21.7 RATIO (10-20); Calcium,Total 9.2 mg/dL (7.6-11.0); Carbon Dioxide 19.7 mmol/L (21.0-32.0); Chloride 109 mmol/L (98-108); Estimated Creatinine Clearance 24.78 ml/min (50-250); Glucose 81 mg/dL (70-99); Potassium 4.9 mmol/L (3.3-5.1)
[2024-11-24] MEDS: Cefepime HCl 2 GM in 0.9% Normal Saline (100mL MB+) 100 ML IV (10:03)
--- NOTE | 2024-11-24 11:08 | PCM.PROGNOTE ---
Subjective Subjective Day #2 cefepime Afebrile VSS - Maintaining appropriate oxygen saturation on RA Oral intake - FOOD mostly good. Last 2 meals has had mild decrease in appetite but she had food from her family. FLUIDS good oral fluid intake yesterday and she also received some IV fluids due to decreased urine output and increased creatinine.. Overnight she had 1100 in and 580. PVRs are negative. Discussed with nursing -continues to be incontinent of urine. Reviewed the THERAPY notes Medication list reviewed. Lab from this morning was personally reviewed. Sodium is 139 and the potassium is 4.9. The BUN is 37, down from 47 yesterday and the creatinine is 1.69, down from 1.87 yesterday. Creat at [place] ranged from 1.37 to 1.53. It was as low as 1.22 in August when she was admitted to the hospital with encephalitis. The only abnormal finding on CSF at that time was increased protein. All cultures and viral studies were negative. she received 8 days of Vanco and Rocephin and had several days of Acyclovir. Review of the notes we got from [facility] and [place] state she improved back to baseline. At baseline she is considered to have dementia. Ultrasound of the kidneys and bladder yesterday showed an atrophic right kidney with a complex cyst. The left kidney has cortical thinning. There was possible mild hydronephrosis of the right kidney. Urine analysis from the admission in August [address] [facility] and recent admission to [facility] show no evidence of urinary tract infection. Objective Data Objective Data Vital Signs: Vital Signs Temp Pulse Resp BP Pulse Ox O2 Del Method O2 Flow Rate 97.6 F L 64 16 126/56 H 96 Nasal Cannula 2 11/24/24 05:50 11/24/24 05:50 11/24/24 05:50 11/24/24 05:50 11/24/24 05:50 11/24/24 05:50 11/24/24 09:03 FiO2 21 11/20/24 21:55 Oxygen Flow Rate (L/min) 2 Oxygen Delivery Method Nasal Cannula Weight: 158 lb 1.143 oz Body Mass Index (BMI) 28.0 Intake & Output: Intake and Output for Last 24 Hours 11/22/24 11/23/24 11/24/24 23:59 23:59 23:59 Intake Total 1420 / 1420 2510 / 2510 1100 / 1100 Output Total 675 / 675 1450 / 1450 580 / 580 Balance 745 / 745 1060 / 1060 520 / 520 Lab / Micro Data 11/23/24 07:33 11/24/24 07:19 Labs: Laboratory Results - last 24 hr 11/24/24 07:19: Sodium 139, Potassium 4.9, Chloride 109 H, Carbon Dioxide 19.7 L, Anion Gap 10, BUN 37 H, Creatinine 1.69 H, Estim Creat Clear Calc 24.78 L, Est GFR (MDRD) Non-Af 30 L, BUN/Creatinine Ratio 21.7 H, Glucose 81, Calcium 9.2 Micro: Microbiology 11/20/24 18:50 Urine Catheter - Catheter Urine Culture - Final Proteus hauseri 11/20/24 16:10 Stool Stool Occult Blood (ROSALBA) - Final Radiography Diagnostic Testing: Radiology Impression Renal Ultrasound 11/23/24 12:20 IMPRESSION: Question trace right hydronephrosis. Atrophic right kidney. 1.2 cm complex cyst within the left kidney. No hydronephrosis of the left. Reading Location: [facility] Physical Exam Const alert Constitutional Narrative: Processing thoughts a little better today.......less staring. Always recognizes me. Can not tell me where she is or why she is here. Can not tell me the year or the month. She did tell nne that she is 79. She is cooperative with therapy. Doing better following commands today. Orientation / Consciousness: confused HEENT Mouth: dry mucous membranes Resp normal respiratory effort, normal air movement and clear to auscultation bilaterally Resp Narrative: No conversational dyspnea. No cough. Effort and Inspection: Negative for tachypneic or respiratory distress Cardio regular rate, regular rhythm, no rub and no gallops GI normal to inspection, nondistended, normoactive bowel sounds, soft to palpation and non-tender GI Narrative: No guarding with palpation. Extremity no calf tenderness General Extremity: Negative for edema Skin Rashes: no rashes Neuro Speech: speech normal Psych cooperative Psych Narrative: Pleasant and making good eye contact with me. Assessment & Plan Assessment/Plan (1) Debility: (2) S/P stroke due to cerebrovascular disease: PLAN: multiple BL strokes.......likely embolic. (3) 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: PLAN: acute on chronic cognitive dysfunction. Notes from previous hospital say she has dementia. (4) Dysarthria: (5) Hemiplegia affecting right dominant side: QUALIFIERS: Hemiplegia type: flaccid Hemiplegia etiology: late effect of cerebrovascular disease Cerebrovascular disease type: cerebral infarction Qualified Code(s): I69.351 - Hemiplegia and hemiparesis following cerebral infarction affecting right dominant side (6) Aphasia complicating stroke: (7) Essential hypertension: PLAN: Was on no meds prior to the recent CVA's. (8) Hyperlipidemia: QUALIFIERS: Hyperlipidemia type: unspecified Qualified Code(s): E78.5 - Hyperlipidemia, unspecified PLAN: Increase the statin to high intensity......40 mg of Atorvastatin (9) Macrocytic anemia: (10) Encephalitis: PLAN: I reviewed all documentation received from [facility] from August 2024 admission for acute encephalitis.......no pathogen was ever identified. The only CSF abnormality was increased proteing in the CSF. (11) Rheumatoid arthritis: QUALIFIERS: Rheumatoid arthritis location: unspecified site PLAN: Treated with Humira in the past but most recently on hydroxychloroquine. (12) Overweight (BMI 25.0-29.9): (13) Mild aortic stenosis: (14) Stage 3 chronic kidney disease: QUALIFIERS: Chronic kidney disease stage 3 subtype: stage 3b (GFR 30-44) Qualified Code(s): N18.32 - Chronic kidney disease, stage 3b (15) Acute renal failure superimposed on stage 3b chronic kidney disease: QUALIFIERS: Acute renal failure type: unspecified Qualified Code(s): N17.9 - Acute kidney failure, unspecified; N18.32 - Chronic kidney disease, stage 3b PLAN: Plan 1. Continue therapy 2. Decrease lisinopril to 10 mg daily because of the potassium being 4.9 today. Suspect due to the acute on chronic renal failure. 3. Finish the current bag of IV fluid and give 1 additional liter and then HL. 4. Recheck a BMP on morning. 5. Recommend follow up with neurology post DC to be evaluated for dementia and possible treament. 6. Goal LDL is 70 or less. Goal blood pressure is less than 135/80. 45 minutes was spent today reviewing the current chart and examining the patient and reviewing all the documentation form [facility] for her admit in August and also the recent admission and also reviewing all the documentation from [facility] from [place] admission. Charges/Coding Visit Charges Inpatient E&M: 17693 Subs Hosp L2
[2024-11-24 11:13] VITALS: BMI 28.0
[2024-11-24 18:00] VITALS: BP 146/66; PULSE 70; RESP 17; TEMP 36.7; O2SAT 96
[2024-11-24 19:57] VITALS: RESP 16; O2SAT 95
[2024-11-24 20:01] VITALS: BMI 28.0
[2024-11-24] MEDS: 0.9% Saline Lock 10 ML Syringe IV (20:45)
[2024-11-25 00:30] VITALS: RESP 15; O2SAT 6
[2024-11-25 05:51] VITALS: BP 132/67; PULSE 72; RESP 16; TEMP 37; O2SAT 96
[2024-11-25] MEDS: Aspirin E.C. 81 MG Tablet PO (08:23)
[2024-11-25] MEDS: Heparin Injection (Vial) 5,000 UNIT/ML VIAL 5000 UNIT SC ×2 (08:23→21:26)
[2024-11-25] MEDS: Senna/Docusate Sodium 1 Tablet 2 TABLET PO ×2 (08:23→21:28)
[2024-11-25] MEDS: Cefepime HCl 2 GM in 0.9% Normal Saline (100mL MB+) 100 ML IV (09:28)
[2024-11-25] MEDS: 0.9% Saline Lock 10 ML Syringe IV ×2 (09:29→21:28)
[2024-11-25] MEDS: 0.9% Normal Saline 250 ML IV.SOLN. IV (09:29)
[2024-11-25 14:56] VITALS: BMI 28.0
[2024-11-25 17:26] VITALS: BP 118/54; PULSE 75; RESP 16; TEMP 36.8; O2SAT 96
[2024-11-25 21:19] VITALS: BP 134/61; PULSE 75; RESP 16; TEMP 37; O2SAT 97
[2024-11-25 22:00] VITALS: PULSE 75; RESP 16; O2SAT 97
[2024-11-26 02:53] VITALS: BMI 28.0
[2024-11-26 06:00] VITALS: BP 126/59; PULSE 61; RESP 15; TEMP 36.6; O2SAT 92
--- NOTE | 2024-11-26 07:39 | PCM.PROGNOTE ---
Subjective Subjective Afebrile VSS -blood pressure is within goal. Heart rate has ranged from 61-75 over the past 24 hours. Maintaining appropriate oxygen saturation on RA while awake. She is on 2 L of nasal O2 at night when sleeping due to an abnormal overnight trending pulse ox and suspected DIMA. Oral intake - FOOD good FLUIDS fluid balance yesterday was -390. She only took 560 cc orally yesterday. Overnight she was -450. Discussed with nursing - no problems that need addressed Reviewed the THERAPY notes Medication list reviewed. Melisa denies cephalgia, vertigo, lightheadedness, chest pain, shortness of breath, cough, nausea/vomiting/abdominal pain and calf pain. She tells me she feels like she has to urinate but this is likely due to the presence of the Abarca catheter. The urine in the Abarca catheter is very pale yellow and clear. All lab from this morning was personally reviewed. Sodium is 136 and the potassium is 4.6. BUN is 34 which is down from 47 on 11/23/2024. The creatinine is at baseline today of 1.36 which is down from 1.87 on 11/23/2024 following IV fluids for hydration. Calcium is within normal limits. Objective Data Objective Data Vital Signs: Vital Signs Temp Pulse Resp BP Pulse Ox O2 Del Method O2 Flow Rate 97.9 F 61 15 126/59 H 92 Nasal Cannula 2 11/26/24 06:00 11/26/24 06:00 11/26/24 06:00 11/26/24 06:00 11/26/24 06:00 11/26/24 06:00 11/26/24 06:00 FiO2 21 11/20/24 21:55 Oxygen Flow Rate (L/min) 2 Oxygen Delivery Method Nasal Cannula Weight: 165 lb 5.547 oz Body Mass Index (BMI) 28.0 Intake & Output: Intake and Output for Last 24 Hours 11/24/24 11/25/24 11/26/24 23:59 23:59 23:59 Intake Total 3750 / 3750 1660 / 1660 150 / 150 Output Total 2480 / 2480 2050 / 2450 600 / 600 Balance 1270 / 1270 -390 / -790 -450 / -450 Lab / Micro Data 11/23/24 07:33 11/26/24 06:47 Micro: Microbiology 11/20/24 18:50 Urine Catheter - Catheter Urine Culture - Final Proteus hauseri 11/20/24 16:10 Stool Stool Occult Blood (ROSALBA) - Final Physical Exam Const alert Constitutional Narrative: Very pleasant and talkative. Makes good eye contact with me. She is now able to tell me the year, month, where she is and why she is here in rehab and her age today. Response time and mentation is better in the late morning and afternoon than it is in the early intervention specialist. General Appearance: cooperative HEENT HEENT Narrative: MM are moist today Resp normal respiratory effort and clear to auscultation bilaterally Resp Narrative: initially had a few coarse crackles in the bases but, this almost completely cleared after a few deep breaths. No cough with deep breathing. Effort and Inspection: Negative for tachypneic Cardio regular rate, regular rhythm, no rub and no gallops GI normal to inspection, nondistended, normoactive bowel sounds, soft to palpation, non-tender and non-distended GI Narrative: No guarding with palpation. Last bowel movement was yesterday. Extremity no calf tenderness General Extremity: Negative for edema Skin General Skin Exam: no breakdown Rashes: no rashes Psych cooperative and affect normal Psych Narrative: Making good eye contact. She is calm. No restlessness. Slow to process information. Assessment & Plan Assessment/Plan (1) Debility: (2) S/P stroke due to cerebrovascular disease: (3) 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: (4) Dysarthria: (5) Hemiplegia affecting right dominant side: QUALIFIERS: Hemiplegia type: flaccid Hemiplegia etiology: late effect of cerebrovascular disease Cerebrovascular disease type: cerebral infarction Qualified Code(s): I69.351 - Hemiplegia and hemiparesis following cerebral infarction affecting right dominant side (6) Aphasia complicating stroke: (7) Essential hypertension: (8) Hyperlipidemia: QUALIFIERS: Hyperlipidemia type: unspecified Qualified Code(s): E78.5 - Hyperlipidemia, unspecified (9) Macrocytic anemia: (10) Encephalitis: (11) Rheumatoid arthritis: QUALIFIERS: Rheumatoid arthritis location: unspecified site Rheumatoid factor presence: unspecified presence Qualified Code(s): M06.9 - Rheumatoid arthritis, unspecified (12) Overweight (BMI 25.0-29.9): (13) Mild aortic stenosis: (14) Stage 3 chronic kidney disease: QUALIFIERS: Chronic kidney disease stage 3 subtype: stage 3b (GFR 30-44) Qualified Code(s): N18.32 - Chronic kidney disease, stage 3b (15) Acute renal failure superimposed on stage 3b chronic kidney disease: QUALIFIERS: Acute renal failure type: unspecified Qualified Code(s): N17.9 - Acute kidney failure, unspecified; N18.32 - Chronic kidney disease, stage 3b PLAN: Creat today, 11/26/24, is back down to baseline following IV hydration. PLAN: Plan 1. Continue therapy 2. DC Tevin today and check a UA 3. discuss with family starting Aricept and having her follow up with neurology to be evaluated for dementia 4. Recheck BMP and a CBC on Saturday. 5. Needs a lot of encouragement to keep her fluid intake up. Charges/Coding Visit Charges Inpatient E&M: 24664 Subs Hosp L1
[2024-11-26 07:50] LABS: Anion Gap 10 (5-15); BUN 34 mg/dL (4-19); BUN/Creat Ratio 24.9 RATIO (10-20); Calcium,Total 9.8 mg/dL (7.6-11.0); Carbon Dioxide 20.3 mmol/L (21.0-32.0); Chloride 105 mmol/L (98-108); Estimated Creatinine Clearance 31.47 ml/min (50-250); Glucose 76 mg/dL (70-99); Potassium 4.6 mmol/L (3.3-5.1)
[2024-11-26] MEDS: Aspirin E.C. 81 MG Tablet PO (08:10)
[2024-11-26] MEDS: Heparin Injection (Vial) 5,000 UNIT/ML VIAL 5000 UNIT SC ×2 (08:11→21:21)
[2024-11-26] MEDS: Senna/Docusate Sodium 1 Tablet 2 TABLET PO ×2 (08:11→21:22)
[2024-11-26] MEDS: 0.9% Saline Lock 10 ML Syringe IV ×2 (09:12→21:22)
[2024-11-26] MEDS: Cefepime HCl 2 GM in 0.9% Normal Saline (100mL MB+) 100 ML IV ×2 (09:15→21:30)
[2024-11-26] MEDS: 0.9% Normal Saline 250 ML IV.SOLN. IV (09:19)
[2024-11-26 11:24] LABS: Mucous, Urine 0 SEEN /hpf (<or=2+); Red Blood Cells-Urine 0 SEEN /hpf (0-5)
[2024-11-26 11:29] LABS: Color, Urine Yellow (Yellow); Glucose, Dipstick Normal (Normal); Ketone-Dipstick Negative (Negative); Leukocyte Esterase-Dipstick Negative /ul (Negative); Nitrite-Dipstick Negative (Negative); Occult Blood-Urine 10 /ul (Negative); Protein-Dipstick 15 mg/dl (Negative); Specific Gravity, Urine 1.015 (1.002-1.030); Urine Bilirubin Dipstick Negative (Negative)
[2024-11-26 11:46] LABS: Squamous Epithelial Cells - UA 0-5 SEEN /hpf (5-10)
[2024-11-26 16:48] VITALS: BMI 28.0
[2024-11-26 18:00] VITALS: BP 127/78; PULSE 75; RESP 16; TEMP 36.2; O2SAT 97
[2024-11-26 20:30] VITALS: BP 124/57; PULSE 75; RESP 16; TEMP 37.5; O2SAT 96
[2024-11-26 22:00] VITALS: PULSE 75; RESP 16; O2SAT 96
[2024-11-27 02:31] VITALS: BMI 28.0
[2024-11-27 05:19] VITALS: BMI 28.3
[2024-11-27 06:00] VITALS: BP 130/67; PULSE 70; RESP 16; TEMP 37; O2SAT 97
[2024-11-27 06:53] VITALS: BMI 28.3
[2024-11-27 06:58] VITALS: O2SAT 97
[2024-11-27] MEDS: Senna/Docusate Sodium 1 Tablet 2 TABLET PO ×2 (07:55→22:08)
[2024-11-27] MEDS: Aspirin E.C. 81 MG Tablet PO (07:56)
[2024-11-27] MEDS: Heparin Injection (Vial) 5,000 UNIT/ML VIAL 5000 UNIT SC ×2 (07:56→22:09)
[2024-11-27 08:15] VITALS: BP 130/80; PULSE 75
[2024-11-27] MEDS: Cefepime HCl 2 GM in 0.9% Normal Saline (100mL MB+) 100 ML IV ×2 (10:00→22:09)
[2024-11-27] MEDS: 0.9% Saline Lock 10 ML Syringe IV ×3 (10:01→23:29)
[2024-11-27 11:06] VITALS: BMI 28.3
[2024-11-27 13:00] VITALS: BP 118/60; PULSE 70
[2024-11-27 18:00] VITALS: BP 102/58; PULSE 62; RESP 17; TEMP 36.6; O2SAT 97
[2024-11-27 23:34] VITALS: O2SAT 99
[2024-11-28 05:50] VITALS: BP 141/70; PULSE 71; RESP 17; TEMP 37.1; O2SAT 97
--- NOTE | 2024-11-28 09:22 | CT_ITS ---
PROCEDURE: BRAIN/HEAD WITHOUT CONTRAST 11/28/2024 REASON FOR EXAM: NOT RESPONDING CORRECTLY TECHNIQUE: Procedure Code: CTBR Modality: CT Procedure: BRAIN/HEAD WITHOUT CONTRAST Coronal and Sagittal reconstruction series were provided. One or more dose reduction techniques were used (e.g., Automated exposure control, adjustment of the mA and/or kV according to patient size, use of iterative reconstruction technique. RADIATION DOSE SUMMARY: DLP: 762.36 mGycm COMPARISON: None FINDINGS: Decreased attenuation in the villa-white matter and periventricular white matter junction. Old infarct involving the right basal ganglia. No acute intracranial hemorrhage midline shift or mass effect. The ventricles are normal in size and contour. There is no hydrocephalus. There is no midline shift. Posterior fossa is within normal limits. An empty sella is noted. Postsurgical changes noted in the eye globes. The sinuses are clear. There is slight deviation of the nasal septum to the right of midline. No acute air-fluid levels noted. Mastoid air cells are clear. No displaced fracture present. CT/Brain/Head without Contrast IMPRESSION: No acute intracranial abnormality. Old right basal ganglia infarct. Severe small-vessel ischemic changes. Reading Location: [id number]
[2024-11-28] MEDS: Heparin Injection (Vial) 5,000 UNIT/ML VIAL 5000 UNIT SC ×2 (09:56→22:25)
[2024-11-28 10:00] VITALS: RESP 12
[2024-11-28] MEDS: levETIRAcetam IV 1,000 MG/100 ML BAG 400 MG IV (10:01)
[2024-11-28] MEDS: 0.9% Normal Saline (1000mL) 1,000 ML 60 ML IV (10:02)
--- NOTE | 2024-11-28 10:09 | PCM.PROGNOTE ---
Subjective Subjective Pt became unresponsive this AM. Has been on Cefepime for UTI, Pharmacy recently increased dose when creat improved after IV fluids. Has know CRF stage 3b with recent exacerbation due to dehydration. VS stable.....not hypertensive. Not tachycardic. She is afebrile Pulse ox is 97% on room air. PERRL, Not responding to verbal stimuli. Withdraws to pain. Having rhythmic jerking/tremoring of the LUE which is new. no generalized tonic clonic activity. If I bend her arm at the elbow she is holding it up. No clonus. No posturing. Babinski equivocal on the Left. Lungs - CTA H- RRR with no ectopy abd - soft, no guarding, nl BS's no peripheral edema Stat CT head without contrast obtained.. Per radiology no acute intracranial abnormality with old right basal ganglia infarct. Severe small vessel ischemic changes. Objective Data Objective Data Vital Signs: Vital Signs Temp Pulse Resp BP Pulse Ox O2 Del Method O2 Flow Rate 98.7 F 71 17 141/70 H 97 Room Air 2 11/28/24 05:50 11/28/24 05:50 11/28/24 05:50 11/28/24 05:50 11/28/24 05:50 11/28/24 07:11 11/28/24 09:22 FiO2 21 11/20/24 21:55 Oxygen Flow Rate (L/min) 2 Oxygen Delivery Method Room Air Weight: 159 lb 9.835 oz Body Mass Index (BMI) 28.3 Intake & Output: Intake and Output for Last 24 Hours 11/26/24 11/27/24 11/28/24 23:59 23:59 23:59 Intake Total 2114 / 2115 1600 / 1600 100 / 100 Output Total 1620 / 2120 1600 / 1600 Balance 495 / -5 0 / 0 100 / 100 Lab / Micro Data 11/28/24 10:13 11/28/24 10:13 Micro: Microbiology 11/20/24 18:50 Urine Catheter - Catheter Urine Culture - Final Proteus hauseri 11/20/24 16:10 Stool Stool Occult Blood (ROSALBA) - Final Radiography Diagnostic Testing: Radiology Impression Brain CT 11/28/24 09:22 IMPRESSION: No acute intracranial abnormality. Old right basal ganglia infarct. Severe small-vessel ischemic changes. Reading Location: [facility] Assessment & Plan Assessment/Plan (1) Debility: (2) S/P stroke due to cerebrovascular disease: (3) 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: (4) Dysarthria: (5) Hemiplegia affecting right dominant side: QUALIFIERS: Hemiplegia type: flaccid Hemiplegia etiology: late effect of cerebrovascular disease Cerebrovascular disease type: cerebral infarction Qualified Code(s): I69.351 - Hemiplegia and hemiparesis following cerebral infarction affecting right dominant side (6) Aphasia complicating stroke: (7) Essential hypertension: (8) Hyperlipidemia: QUALIFIERS: Hyperlipidemia type: unspecified Qualified Code(s): E78.5 - Hyperlipidemia, unspecified (9) Macrocytic anemia: (10) Encephalitis: (11) Rheumatoid arthritis: QUALIFIERS: Rheumatoid arthritis location: unspecified site Rheumatoid factor presence: unspecified presence Qualified Code(s): M06.9 - Rheumatoid arthritis, unspecified (12) Overweight (BMI 25.0-29.9): (13) Mild aortic stenosis: (14) Stage 3 chronic kidney disease: QUALIFIERS: Chronic kidney disease stage 3 subtype: stage 3b (GFR 30-44) Qualified Code(s): N18.32 - Chronic kidney disease, stage 3b (15) Altered mental status: QUALIFIERS: Altered mental status type: stupor Qualified Code(s): R40.1 - Stupor PLAN: Suspect due to neurotoxicity due to Cefepime. CT brain negative for acute findings. (16) Seizure: PLAN: secondary to strokes? or to Cefepime. PLAN: Plan 1. Suspect neurotoxicity from Cefepime. It has been discontinued. 2. Keppra 1 GM IV ordered now and then start 250 mg IV Q12H in 12H. 3. NPO and start IV NS at 60 cc/hr 4. CBC with diff and a CMP now. 5. EEG ordered. 6. D/W dtr Nathalia and explained my suspicion. Will keep her on rehab for now. Confirmed code status is still DNRCCA with no intubation. Nathalia is OK with keeping her on rehab but, if she deteriorates will consider transfer to acute. 7. Re-evaluate in 1-2 hours. If she declines will get a tele-neurology consult. 8. Hold all oral medications. 9. Hydralazine 5 mg IV every 6 hours as needed systolic > 169 or diastolic > 89 Charges/Coding Visit Charges Inpatient E&M: 02484 Subs Hosp L2
[2024-11-28 10:34] LABS: Hematocrit 30.5 % (37-47); Hemoglobin 9.6 g/dL (12.0-15.0); Immature Granulocytes Count 0.030 X10^3/uL (0.0-0.0); Mean Corp Hgb Conc 31.5 g/dL (32-36); Mean Corpuscular Volume 104.5 fL (81-99); Mean Platelet Vol. 9.4 fl (6.2-12.0); NRBC Flagged by Analyzer 0 % (0-5); Platelet Count 347 K/mm3 (150-450); RBC Distribution Width CV 11.9 % (11.6-14.6); RBC Distribution Width SD 45.8 fl (35.1-43.9); Red Blood Count 2.92 M/mm3 (4.2-5.4); White Blood Count 6.9 K/mm3 (4.4-11.0)
--- NOTE | 2024-11-28 11:13 | NURSING ---
I went to see patient this AM. Only arrousable to painful stimuli, as such unable to follow commands, did say 's name once. Notified Dr. Thomson who ordered CT brain STAT. When she assessed the patient noted focal seizures, ordered EEG and Keppra.Vital signs and O2 status normal
[2024-11-28 11:33] LABS: AST(SGOT) 20 U/L (<=31); Alanine Aminotransfer ALT/SGPT 11 U/L (<=34); Albumin, Serum 3.8 g/dL (3.4-4.8); Alkaline Phosphatase 66 U/L (35-104); Anion Gap 11 (5-15); BUN 28 mg/dL (4-19); BUN/Creat Ratio 22.5 RATIO (10-20); Calcium,Total 9.9 mg/dL (7.6-11.0); Carbon Dioxide 20.4 mmol/L (21.0-32.0); Chloride 105 mmol/L (98-108); Estimated Creatinine Clearance 33.39 ml/min (50-250); Globulin 3.7 g/dL (2.2-4.2); Glucose 94 mg/dL (70-99); Potassium 4.7 mmol/L (3.3-5.1)
[2024-11-28 11:36] VITALS: BP 92/48; PULSE 62; RESP 16; TEMP 36.1; O2SAT 94
[2024-11-28 14:12] VITALS: BMI 28.3
[2024-11-28] MEDS: Dextrose 5%/0.9% NaCl 1,000 ML 60 ML IV (17:20)
--- NOTE | 2024-11-28 17:27 | NURSING ---
Discussed with Dr. Thomson the patient's blood sugar trend. Ordered D5NS and monitor blood sugar while NPO
[2024-11-28 18:00] VITALS: BP 138/63; PULSE 73; RESP 16; TEMP 37.1; O2SAT 99
[2024-11-28] MEDS: 0.9% Saline Lock 10 ML Syringe IV ×2 (19:32→22:30)
[2024-11-28 22:00] VITALS: RESP 17; O2SAT 97
[2024-11-28 22:13] VITALS: BP 144/64; PULSE 65; RESP 18; O2SAT 98
[2024-11-28] MEDS: 0.9% Normal Saline (250mL Bag) 250 ML 15 ML IV (22:30)
[2024-11-28] MEDS: levETIRAcetam IV 250 MG in 0.9% Normal Saline (100mL Bag) 100 ML 410 MG IV (22:32)
[2024-11-29 00:09] VITALS: PULSE 61; RESP 15; O2SAT 99
[2024-11-29 06:00] VITALS: BP 131/52; PULSE 58; RESP 16; TEMP 36.9; O2SAT 98
--- NOTE | 2024-11-29 08:43 | RAD_ITS ---
PROCEDURE: CHEST 1 VIEW (PORTABLE) 11/29/2024 REASON FOR EXAM: COUGHING TECHNIQUE: Frontal view of the chest. COMPARISON: 03/22/2023 FINDINGS: Hardware: Battery pack overlies the left chest wall Heart: Mild cardiomegaly. Atherosclerosis of the aorta. Lungs: No significant change in the appearance of the lungs. No focal consolidation or effusion. No pneumothorax. Bones: Mild multilevel disc disease. RAD/Chest 1 View (Portable) IMPRESSION: No acute cardiopulmonary process or significant interval change. Reading Location: [id number]
--- NOTE | 2024-11-29 09:14 | CT_ITS ---
PROCEDURE: CHEST WITHOUT CONTRAST 11/29/2024 REASON FOR EXAM: COUGH, RALES L BASE POSTERIORLY TECHNIQUE: Chest CT without contrast. Coronal and Sagittal reconstruction series were provided. One or more dose reduction techniques were used (e.g., Automated exposure control, adjustment of the mA and/or kV according to patient size, use of iterative reconstruction technique RADIATION DOSE SUMMARY: DLP: 399 mGycm COMPARISON: Available priors FINDINGS: Pulmonary parenchyma: Dependent atelectatic changes of the left base. No lobar consolidation. No suspicious pulmonary nodule or ground-glass opacity.. Airways: The central airways are patent. Pleural space: No pneumothorax or pleural effusion. Heart and pericardium: Coronary arterial calcifications. Calcifications of the mitral annulus and aortic leaflets. No pericardial effusion. Mediastinum and atif: Unremarkable. Thoracic vessels: Atherosclerosis. Mild ectasia of the ascending aorta without aneurysm. The descending aorta is of normal caliber. Osseous structures: No aggressive osseous lesion. Multilevel degenerative disc disease. Mild scoliosis. Upper visualized abdomen: Unremarkable. CT/Chest without Contrast IMPRESSION: Heavy coronary artery calcifications as well as calcifications of the mitral an nulus and aortic leaflets. Mild dependent atelectatic changes in the lower lobes, worse in the left base, without lobar consolidation, effusion or pneumothorax. Reading Location: [id number]
[2024-11-29] MEDS: Heparin Injection (Vial) 5,000 UNIT/ML VIAL 5000 UNIT SC ×2 (09:55→21:18)
[2024-11-29] MEDS: Dextrose 5%/0.9% NaCl 1,000 ML 60 ML IV (09:55)
[2024-11-29] MEDS: levETIRAcetam IV 250 MG in 0.9% Normal Saline (100mL Bag) 100 ML 410 MG IV ×2 (09:55→21:47)
[2024-11-29] MEDS: 0.9% Saline Lock 10 ML Syringe IV ×2 (10:03→21:47)
[2024-11-29 12:31] VITALS: BMI 28.3
--- NOTE | 2024-11-29 14:32 | NEURO.CONS ---
Assessment and Plan: Neuro Assessment/Plan NICOL BLACK is a 79 F with a past medical history of RA, possible history of unspecified encephalitis, CVA recently, being evaluated by Teleneurology for sudden alteration in mental status. Patient has new R sided weakness with new stroke - although stroke is bilateral in small vessel territories (R internal capsule and L basal ganglia). Patient on DAPT and CTH without any hemorrhage after the event. The event itself is more concerning for focal seizure. Patient has several inciting events that could lower seizure threshold including UTI, use of cefepime and toxicity, and stroke. Unclear that this constitutes epilepsy at this time. Plan: - agree with de-escalation of cefepime - agree with EEG - if EEG normal, recommend cont Keppra 500mg BID for 1 week to stabilize seizure threshold and then de-escalating. If EEG abnormal, rec continuing KEppra 500mg BID at least for 1 year - if no return to baseline weakness or improvement on this in next couple days, or event happens again, rec MRI Brain (given prior concern for encephalitis, would assess if a small vessel vasculitis is at play if MRI Brain with new small vessel lesions). I personally attended this patient and spent a total time of 45minutes evaluating this patient including clinical assessment, review of chart, medical history imaging, and determining appropriate treatment and workup. HPI Consult Data Date of Consult: 11/29/24 HPI Narrative HPI Narrative: NICOL BLACK, is a 79 F who presents to the inpatient rehab unit from [facility] following CVA. She presented to their ED on 11/17/24, with R sided weakness. She had been, reportedly, weak for several days prior to admission. She did have a fall on 11/16/2024 which family believed to be from generalized weakness. Initial CT scan was negative for any acute processes. MRI/MRA of the brain demonstrated left basal ganglia acute infarct in the R internal capsule posterior limb 2. Right basal ganglia subacute infarct in the internal capsule posterior limb 3. A small signal abnormality in the left putamen. She had no corresponding restricted diffusion to suggest acute infarct. It was determined that she was not a tPA candidate. She was placed on dual antiplatelet therapy with Plavix and aspirin. She will continue to be on these for 21 days. A 30-day event monitor has been ordered to monitor for atrial fibrillation. She did experience high blood pressure during admission in which they initiated amlodipine and lisinopril. It appears that she does have remote history of hypertension but was not receiving any antihypertensive therapy, prior to hospitalization. These medications are new for her. She also has history of a arthritis, encephalitis and CKD III, per documentation. She did have blood work this morning showing a BUN of 29, a creatinine of 1.35 and a GFR of 39. These numbers are slightly improved compared to labs sent from previous hospital. Prior to admission the patient's hemoglobin was 11.2. Lab work this morning is significant for macrocytic anemia in which her hemoglobin is now 10.7. Will order stool Hemoccult to assist in evaluating anemia. Her lipid panel at [facility] did show HDLs of 87 and LDL was at 139 with a total cholesterol of 238. She was started on a statin by [facility]. Patient's echocardiogram at [facility] did show a EF of 60 to 65%, mild LVH and grade 1 diastolic. Mild aortic stenosis, peak and mean aortic the gradients 22 and 12 mmHg, mild MAC, mild LAE, mild TR. Pt became unresponsive this AM. Has been on Cefepime for UTI, Pharmacy recently increased dose when creat improved after IV fluids. Has know CRF stage 3b with recent exacerbation due to dehydration. Neurologic History Patient yesterday was keeping her eyes closed not responding to noxious stim per nurse. Is improving and responding more now. Eyes closed would not open or respond. BP at that time was normal, BG was normal. Her eyes were concerned for being dilated. On discussion with Dr. Thomson and the nurse: Patient had her event around 8AM, nurse was called into the room and she was not responding. Dr. Thomson then noted L arm shaking and rhythmic jerking that went on for a few minutes. Stopped after 1 gram Keppra. She recently had her cefepime increased as renal function improved. The day after the increase, patient was slower to respond and the net day was the day she was unresponsive. She is greatly improved but still not returned to baseline. Per nurse, her baseline weakness was on the R side. Per Dr. Thomson, pt was being worked up for encephalitis in July (her CSF at that time per records was bland with just elevated protein - but unclear how elevated) but unclear if infectious or autoimmune. She has RA and was recently changed from humira to plaquenil. Neurologic Exam - NEURO: - Mental Status: Patient was awake, had hard time paying attention to the robot but attended appropriately to son and nurse Knows she is in hospital, but thinks it is the one she had the stroke in She has delayed answering of questions, appears to follow one step commands but has difficulty with more complex questions - EOMI horizontally, R nasolabial fold flattening - RUE with pronation, b/l UE with drift - LLE with drift and RLE antigravity strongly FTN intact b/l; HTS intact grossly Diminished sensation on the R leg PFSH Medical History (Updated 11/28/24 @ 12:[address] Nicol Thomson DO) S/P stroke due to cerebrovascular disease Humerus distal fracture Rheumatoid arthritis Overweight (BMI 25.0-29.9) Encephalitis Mild aortic stenosis Stage 3 chronic kidney disease Hypertension Medical History no medical history Home Medications Medication Instructions Recorded Last Taken Type acetaminophen 650 mg 650 mg PO Q8H PRN pain 11/19/24 Unknown History tablet,extended release (Arthritis Pain Relief (acetaminophen) ER) amlodipine 5 mg tablet 5 mg PO DAILY blood pessure 11/19/24 Unknown History aspirin 81 mg chewable tablet 1 tab PO DAILY heart 11/19/24 Unknown History atorvastatin 20 mg tablet (Lipitor) 20 mg PO QHS cholesterol 11/19/24 Unknown History clopidogrel 75 mg tablet (Plavix) 75 mg PO DAILY AFib 11/19/24 Unknown History hydroxychloroquine 200 mg tablet 200 mg PO BID arthritis 11/19/24 Unknown History lisinopril 20 mg tablet 20 mg PO DAILY blood pressure 11/19/24 Unknown History Allergy/AdvReac Type Severity Reaction Status Date / Time amoxicillin Allergy Unknown PT UNSURE Verified 11/19/24 15:36 OF REACTION oxycodone (From Percocet) Allergy Unknown PT UNSURE Verified 11/19/24 15:36 OF REACTION Family History unable to obtain Surgical History (Updated 11/20/24 @ 17:[address] Nicol Thomson DO) History of open reduction and internal fixation (ORIF) procedure History of total knee arthroplasty Hx of cholecystectomy Surgical History no surgical history Social History (Updated 11/20/24 @ 17:[address] Nicol Thomson DO) household members: spouse and other details: 's name is no housing: house number of children: 6 Smoking Status: Never smoker alcohol intake: never Vital Signs Vital Signs Vital Signs: 11/28/24 18:00 11/28/24 22:00 11/28/24 22:00 Temperature 98.7 F Temperature Source Temporal Pulse Rate 73 Pulse Strength Normal (2+) Respiratory Rate 16 17 Respiratory Effort Normal Non-Labored Respiratory Depth Respiratory Pattern Blood Pressure 138/63 H Blood Pressure Mean 88 Blood Pressure Source Blood Pressure Position Semi-Fowlers Blood Pressure Location Right Arm Pulse Ox 99 97 Oxygen Delivery Method Room Air Nasal Cannula Oxygen Flow Rate (L/min) 2 11/28/24 22:13 11/29/24 00:09 11/29/24 06:00 Temperature 98.5 F Temperature Source Temporal Pulse Rate 65 61 58 L Pulse Strength Respiratory Rate 18 15 16 Respiratory Effort Respiratory Depth Respiratory Pattern Blood Pressure 144/64 H 131/52 H Blood Pressure Mean 90 78 Blood Pressure Source Monitor Monitor Blood Pressure Position Semi-Fowlers Semi-Fowlers Blood Pressure Location Right Arm Right Arm Pulse Ox 98 99 98 Oxygen Delivery Method Nasal Cannula Nasal Cannula Nasal Cannula Oxygen Flow Rate (L/min) 2 2 2 11/29/24 07:16 11/29/24 10:00 11/29/24 10:00 Temperature Temperature Source Pulse Rate Pulse Strength Normal (2+) Respiratory Rate Respiratory Effort Normal Non-Labored Respiratory Depth Normal Respiratory Pattern Normal Blood Pressure Blood Pressure Mean Blood Pressure Source Blood Pressure Position Blood Pressure Location Pulse Ox Oxygen Delivery Method Nasal Cannula Nasal Cannula Oxygen Flow Rate (L/min) 2 2 Weight Weight: 72.4 kg Body Mass Index (BMI) 28.3 EEG Results Procedure Details EEG Procedure Details: NICOL BLACK is a 79 year old F with a past medical history of , who presents for evaluation of Electroencephalogram on DATE at TIME Lab / Micro Data 11/28/24 10:13 11/28/24 10:13 Labs: Laboratory Results - last 24 hr 11/28/24 16:38: POC Glucose 79 11/28/24 22:42: POC Glucose 88 11/29/24 06:38: POC Glucose 84 11/29/24 11:42: POC Glucose 88 Imaging Radiology Impression Chest X-Ray 11/29/24 08:43 IMPRESSION: No acute cardiopulmonary process or significant interval change. Reading Location: [facility] Chest CT 11/29/24 09:14 IMPRESSION: Heavy coronary artery calcifications as well as calcifications of the mitral annulus and aortic leaflets. Mild dependent atelectatic changes in the lower lobes, worse in the left base, without lobar consolidation, effusion or pneumothorax. Reading Location: [facility] ([place], [place]) Active Medications Active Medications Active Medications: Current Medications Generic Name Dose Route Start Last Admin Trade Name Freq PRN Reason Stop Dose Admin Acetaminophen 500 mg 11/19/24 17:04 11/25/24 21:36 Acetaminophen 500 Mg Tablet PO 500 mg On Hold: 11/28/24 10:24 Q6H PRN Administration PAIN33 Amlodipine Besylate 5 mg 11/20/24 10:00 11/28/24 10:00 Amlodipine 5 Mg Tablet PO Not Given On Hold: 11/28/24 10:24 DAILY [facility] Protocol Aspirin 81 mg 11/20/24 08:00 11/29/24 07:33 Aspirin E.C. 81 Mg Tablet PO 12/11/24 08:01 Not Given BREAKFAST [facility] Atorvastatin Calcium 40 mg 11/20/24 22:00 11/27/24 22:08 Atorvastatin Calcium 40 Mg Tablet PO 40 mg On Hold: 11/28/24 10:25 QHS LIBBY Administration Bisacodyl 10 mg 11/19/24 15:31 Bisacodyl 10 Mg Suppository RC X1 PRN Constipation Calamine/Phenol 1 applic 11/24/24 22:00 11/29/24 09:56 Menthol/Lanolin/Calamine/Znox 113 Gm Tube TOPICAL 1 applic BID LIBBY Administration Protocol Clopidogrel Bisulfate 75 mg 11/20/24 10:00 11/28/24 10:00 Clopidogrel Bisulfate 75 Mg Tablet PO Not Given On Hold: 11/28/24 10:26 DAILY [facility] Heparin Sodium (Porcine) 5,000 unit 11/20/24 10:00 11/29/24 09:55 Heparin Injection (Vial) 5,000 Unit/Ml Vial SC 5,000 unit Q12 LIBBY Administration Hydralazine HCl 5 mg 11/28/24 10:26 Hydralazine 20 Mg/Ml Vial IV Q6H PRN PRN SYS>169 BANDA>89 Protocol Hydroxychloroquine Sulfate 200 mg 11/19/24 22:00 11/28/24 10:00 Hydroxychloroquine 200 Mg Tablet PO Not Given On Hold: 11/28/24 10:26 BID LIBBY Sodium Chloride 250 mls @ 15 mls/hr 11/26/24 09:20 11/28/24 23:25 IV 0 mls/hr .[id number] PRN Infusion Saline Flush Sodium Chloride 250 mls @ 15 mls/hr 11/26/24 09:20 IV .[id number] PRN Additional IVPB Infusion Levetiracetam 250 mg/ Sodium 102.5 mls @ 410 mls/hr 11/28/24 22:00 11/29/24 10:10 Chloride IV Infused Q12 LIBBY Infusion Dextrose/Sodium Chloride 1,000 mls @ 60 mls/hr 11/28/24 17:00 11/29/24 09:55 Dextrose 5%/0.9% Nacl IV 60 mls/hr .[id number] LIBBY Administration Lisinopril 10 mg 11/25/24 10:00 11/28/24 10:01 Lisinopril 10 Mg Tablet PO Not Given On Hold: 11/28/24 10:25 DAILY LIBBY Protocol Magnesium Hydroxide 30 ml 11/19/24 15:31 Magnesium Hydroxide 30 Ml Udc PO X1 PRN Constipation Nystatin 1 applic 11/20/24 10:00 11/29/24 09:56 Nystatin Powder 15gm Bottle TOPICAL 1 applic BID LIBBY Administration Protocol Senna/Docusate Sodium 2 tablet 11/19/24 22:00 11/28/24 10:01 Senna/Docusate Sodium 1 Tablet PO Not Given On Hold: 11/28/24 10:25 BID LIBBY Sodium Chloride 10 - 40 ml 11/23/24 13:18 11/29/24 10:03 0.9% Saline Lock 10 Ml Syringe IV 30 ml UD PRN Administration SALINE FLUSH
[2024-11-29 17:18] VITALS: BP 138/61; PULSE 67; RESP 16; TEMP 36.9; O2SAT 99
[2024-11-29] MEDS: 0.9% Normal Saline (250mL Bag) 250 ML 15 ML IV (21:49)
[2024-11-29 22:00] VITALS: RESP 16; O2SAT 98
[2024-11-30 01:25] VITALS: PULSE 71; O2SAT 97
[2024-11-30] MEDS: Dextrose 5%/0.9% NaCl 1,000 ML 60 ML IV ×2 (02:37→19:58)
[2024-11-30 06:10] VITALS: BP 161/69; PULSE 63; RESP 16; TEMP 36.7; O2SAT 98
[2024-11-30 08:58] LABS: Hematocrit 33.5 % (37-47); Hemoglobin 10.4 g/dL (12.0-15.0); Mean Corp Hgb Conc 31.0 g/dL (32-36); Mean Corpuscular Volume 106.0 fL (81-99); Mean Platelet Vol. 9.4 fl (6.2-12.0); Platelet Count 306 K/mm3 (150-450); RBC Distribution Width CV 11.7 % (11.6-14.6); RBC Distribution Width SD 45.7 fl (35.1-43.9); Red Blood Count 3.16 M/mm3 (4.2-5.4); White Blood Count 8.2 K/mm3 (4.4-11.0)
[2024-11-30 09:29] VITALS: BP 166/66; PULSE 66
[2024-11-30] MEDS: Aspirin E.C. 81 MG Tablet PO (09:31)
[2024-11-30] MEDS: Senna/Docusate Sodium 1 Tablet 2 TABLET PO ×2 (09:31→21:49)
[2024-11-30] MEDS: Heparin Injection (Vial) 5,000 UNIT/ML VIAL 5000 UNIT SC ×2 (09:32→21:50)
[2024-11-30] MEDS: 0.9% Saline Lock 10 ML Syringe IV (09:54)
[2024-11-30] MEDS: levETIRAcetam IV 250 MG in 0.9% Normal Saline (100mL Bag) 100 ML 410 MG IV ×2 (09:54→21:50)
[2024-11-30 10:27] LABS: Anion Gap 11 (5-15); BUN 21 mg/dL (4-19); BUN/Creat Ratio 16.3 RATIO (10-20); Calcium,Total 9.6 mg/dL (7.6-11.0); Carbon Dioxide 20.0 mmol/L (21.0-32.0); Chloride 108 mmol/L (98-108); Estimated Creatinine Clearance 33.39 ml/min (50-250); Glucose 91 mg/dL (70-99); Potassium 4.8 mmol/L (3.3-5.1)
[2024-11-30 11:40] VITALS: BMI 28.3
--- NOTE | 2024-11-30 12:42 | CASEMGMT ---
Social Work IDT met with patient, dtr and son for Team meeting. 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 Pt had a change in condition the last few days and is very lethargic. Pt is currently totalx2 assist for all tasks since that decline. Pt is N3TWORK and has been approved for the time she needs. Pt's focus is medical at this time. SW will continue to follow and RETeam weekly. Jessica Ewing OPTOMETRY ASSISTANT LANDSCAPE LABORER
[2024-11-30 14:00] VITALS: BMI 28.6
--- NOTE | 2024-11-30 14:13 | PCM.PROGNOTE ---
Subjective Subjective Melisa was seen on team rounds today. Family was present in the room and all their questions were answered to their satisfaction. Afebrile VSS - Maintaining appropriate oxygen saturation on RA Oral intake - FOOD she ate 75 to 100% of her late breakfast this morning. She refused lunch. FLUIDS she is on IV fluids to maintain hydration. Discussed with nursing - no problems that need addressed Reviewed the THERAPY notes Medication list reviewed. Melisa woke up for me today and she recognize me although she cannot remember who I am. She told me it was 2024. She denies shortness of breath and she is not coughing. She denied cephalgia. She denied burning with urination and abdominal pain. When I asked her if she would like something to eat she told me coffee, toast and grape jelly. Her dtr fed her breakfast. No coughing and no drooling. All lab from today was personally reviewed. White blood cell count is normal at 8.2. Hemoglobin is stable at 10.4 and platelets are within normal limits. Sodium is 139 and the potassium is stable at 4.8. Serum bicarb is stable at 20. The BUN is down to 21 from 28 on Saturday and her creatinine is stable at 1.26 which is good for her. I personally reviewed the CT scan and also the radiology report. The CT shows atelectatic changes in the left base. There was no infiltrate, no effusion and no suspicious pulmonary nodules or ground glass opacities. She is no longer coughing and we are keeping the head of the bed a least 30 degrees. She had a bath with OT today and then ate breakfast and she is very tired now. She slept through the TEAM meeting. She has had no more rhythmic shaking of the LUE. she is moving all extremities. She is talking and told me that it is 2024. More responsive today than yesterday and is gradually improving. MM are moist. H - RRR, no gallop Lungs.......still with some coarse crackles in the L base but, less than yesterday. RR is within normal limits and the respirations are not labored. No wheezing. Not coughing today. The abdomen is soft and nondistended. She had no guarding with palpation and there are normal bowel sounds present. No ankle edema. She told her dtr that she feels like her L side is weaker but, I do not detect any significant decline since admission. I think the generalixed weakness is worse due to altered level of consciousness and inability to do therapy since . Objective Data Objective Data Vital Signs: Vital Signs Temp Pulse Resp BP Pulse Ox O2 Del Method O2 Flow Rate 98.0 F 66 16 166/66 H 98 Room Air 2 11/30/24 06:10 11/30/24 09:29 11/30/24 06:10 11/30/24 09:29 11/30/24 06:10 11/30/24 10:00 11/30/24 06:32 FiO2 21 11/20/24 21:55 Oxygen Flow Rate (L/min) 2 Oxygen Delivery Method Room Air Weight: 159 lb 9.835 oz Body Mass Index (BMI) 28.3 Intake & Output: Intake and Output for Last 24 Hours 11/28/24 11/29/24 11/30/24 23:59 23:59 23:59 Intake Total 755.25 / 755.25 1214.0 / 1214.0 1712.5 / 1712.5 Balance 755.25 / 755.25 1214.0 / 1214.0 1712.5 / 1712.5 Lab / Micro Data 11/30/24 08:43 11/30/24 08:43 Labs: Laboratory Results - last 24 hr 11/29/24 16:47: POC Glucose 89 11/29/24 22:15: POC Glucose 97 11/30/24 05:53: POC Glucose 91 11/30/24 08:43: WBC 8.2, RBC 3.16 L, Hgb 10.4 L, Hct 33.5 L, MCV 106.0 H, MCH 32.9 H, MCHC 31.0 L, RDW Std Deviation 45.7 H, RDW Coeff of Jennifer 11.7, Plt Count 306, MPV 9.4, Sodium 139, Potassium 4.8, Chloride 108, Carbon Dioxide 20.0 L, Anion Gap 11, BUN 21 H, Creatinine 1.26 H, Estim Creat Clear Calc 33.39 L, Est GFR (MDRD) Non-Af 43 L, BUN/Creatinine Ratio 16.3, Glucose 91, Calcium 9.6 11/30/24 11:07: POC Glucose 160 H Micro: Microbiology 11/20/24 18:50 Urine Catheter - Catheter Urine Culture - Final Proteus hauseri 11/20/24 16:10 Stool Stool Occult Blood (ROSALBA) - Final Assessment & Plan Assessment/Plan (1) Debility: (2) S/P stroke due to cerebrovascular disease: (3) 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: (4) Dysarthria: (5) Hemiplegia affecting right dominant side: QUALIFIERS: Hemiplegia type: flaccid Hemiplegia etiology: late effect of cerebrovascular disease Cerebrovascular disease type: cerebral infarction Qualified Code(s): I69.351 - Hemiplegia and hemiparesis following cerebral infarction affecting right dominant side (6) Aphasia complicating stroke: (7) Essential hypertension: (8) Hyperlipidemia: QUALIFIERS: Hyperlipidemia type: unspecified Qualified Code(s): E78.5 - Hyperlipidemia, unspecified (9) Macrocytic anemia: (10) Encephalitis: (11) Rheumatoid arthritis: QUALIFIERS: Rheumatoid arthritis location: unspecified site Rheumatoid factor presence: unspecified presence Qualified Code(s): M06.9 - Rheumatoid arthritis, unspecified (12) Overweight (BMI 25.0-29.9): (13) Mild aortic stenosis: (14) Stage 3 chronic kidney disease: QUALIFIERS: Chronic kidney disease stage 3 subtype: stage 3b (GFR 30-44) Qualified Code(s): N18.32 - Chronic kidney disease, stage 3b (15) Altered mental status: QUALIFIERS: Altered mental status type: stupor Qualified Code(s): R40.1 - Stupor (16) Seizure: (17) Adverse drug reaction: QUALIFIERS: Encounter type: initial encounter Qualified Code(s): T50.905A - Adverse effect of unspecified drugs, medicaments and biological substances, initial encounter PLAN: Plan 1. Continue therapy as able. 2. She is slowly improving but, she has endured a lot since August and she is weak and tired. 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 The W/U at that time was negative except for an elevated CSF protein. The strokes are on both sides of the brain and we suspect emboli. She has no hx of PAF but, she has an abnormal overnight trending pulse ox and She may have sleep apnea. When we started applying O2 at night she was more alert the next day and did better with therapy, until AM when she started to be less alert. She has been in NSR every time I have examined her. she has an event monitor on. She has a hx of RA.........this can be associated with vasculitis. Cognition had been declining even prior to the "meningoencephalitis" in August. She began complaining of severe headaches and had accelerated cognitive decline. No evidence of infection was found and she received a 10-day course of Rocephin and vancomycin. She also received acyclovir during that time. Will check a ESR and CRP. If she declines again or fails to improve will repeat MRI/MRA of the brain and consider transfer to [facility] for evaluation for cerebral vasculitis. I reviewed Dr. Fisher's note from yesterday and we discussed the case in texts. Appreciate her input. Charges/Coding Visit Charges Inpatient E&M: 39417 Subs Hosp L2
[2024-11-30 18:00] VITALS: BP 130/62; PULSE 69; RESP 17; TEMP 36.6; O2SAT 98
[2024-11-30 18:12] LABS: CRP 9.47 mg/L (0.0-3.0)
[2024-11-30 22:00] VITALS: PULSE 73; RESP 15; O2SAT 98
[2024-11-30 23:15] VITALS: BMI 28.6
[2024-12-01 03:00] VITALS: RESP 16; O2SAT 96
[2024-12-01 05:51] VITALS: BP 112/48; PULSE 63; RESP 16; TEMP 36.3; O2SAT 98
[2024-12-01 05:52] VITALS: BMI 28.7
[2024-12-01 06:00] VITALS: BMI 28.1
[2024-12-01] MEDS: Heparin Injection (Vial) 5,000 UNIT/ML VIAL 5000 UNIT SC ×2 (08:19→21:40)
[2024-12-01] MEDS: Aspirin E.C. 81 MG Tablet PO (08:19)
[2024-12-01] MEDS: Senna/Docusate Sodium 1 Tablet 2 TABLET PO ×2 (08:19→21:42)
--- NOTE | 2024-12-01 09:23 | PCM.PROGNOTE ---
Subjective Subjective Afebrile VSS - Maintaining appropriate oxygen saturation on RA Oral intake - FOOD refused lunch yesterday but ate 75 to 100% of breakfast and dinner. Ate well for breakfast this morning.She was out in the therapy room in a WC for breakfast today and was able to maintain upright posture in the WC without assist. FLUIDS totaled 530 cc or yesterday and also received IV fluids. I reviewed the blood sugar record and his blood sugars were all in the 90s yesterday. She is on D5 normal saline at 60. Blood sugar dropped when she was comatose and not eating. Had a large bowel movement yesterday and knew she had to have a BM and she told her . Discussed with nursing -incontinent of urine. Reviewed the THERAPY notes Medication list reviewed. ESR yesterday was normal at 25. CRP is mildly elevated at 9.47. Rheumatoid factor was normal at 12 on 03/22/2023 but the CCP was mildly increased at 27. VANDANA in the past has been negative. Denies cephalgia. Denies lightheadedness. Denies chest pain. Still somewhat slow to respond to questions. I reviewed the EEG report and the EEG was abnormal in wakefulness and sleep and was consistent with nonspecific moderate encephalopathy. There was no epileptiform activity. No one has witnessed any seizure activity. Objective Data Objective Data Vital Signs: Vital Signs Temp Pulse Resp BP Pulse Ox O2 Del Method O2 Flow Rate 97.4 F L 63 16 112/48 L 98 Nasal Cannula 2 12/01/24 05:51 12/01/24 05:51 12/01/24 05:51 12/01/24 05:51 12/01/24 05:51 12/01/24 05:51 12/01/24 05:51 FiO2 21 11/20/24 21:55 Oxygen Flow Rate (L/min) 2 Oxygen Delivery Method Nasal Cannula Weight: 162 lb Body Mass Index (BMI) 28.7 Intake & Output: Intake and Output for Last 24 Hours 11/29/24 11/30/24 12/01/24 23:59 23:59 23:59 Intake Total 1214.0 / 1214.0 3345.0 / 3405.0 90 / 90 Balance 1214.0 / 1214.0 3345.0 / 3405.0 90 / 90 Lab / Micro Data 11/30/24 08:43 11/30/24 08:43 Labs: Laboratory Results - last 24 hr 11/30/24 08:43: Sodium 139, Potassium 4.8, Chloride 108, Carbon Dioxide 20.0 L, Anion Gap 11, BUN 21 H, Creatinine 1.26 H, Estim Creat Clear Calc 33.39 L, Est GFR (MDRD) Non-Af 43 L, BUN/Creatinine Ratio 16.3, Glucose 91, Calcium 9.6, C-React Prot Ext Range 9.47 H 11/30/24 11:07: POC Glucose 160 H 11/30/24 15:02: ESR 25 11/30/24 16:44: POC Glucose 99 11/30/24 22:32: POC Glucose 91 12/01/24 05:45: POC Glucose 93 Micro: Microbiology 11/20/24 18:50 Urine Catheter - Catheter Urine Culture - Final Proteus hauseri 11/20/24 16:10 Stool Stool Occult Blood (ROSALBA) - Final Physical Exam Const alert Constitutional Narrative: Slow to respond to questions. Feeding herself and able to maintain upright posture in the WC. She was able to stand and use the pivot disc today. General Appearance: cooperative HEENT moist oral mucous membranes HEENT Narrative: MM are moist today Eyes PERRL and EOMs intact bilaterally Eyes Narrative: processing thoughts faster today and speech has a better johnnie. Neck supple Neck Narrative: Denies cephalgia. Resp normal respiratory effort and clear to auscultation bilaterally Resp Narrative: initially had a few coarse crackles in the bases but, this almost completely cleared after a few deep breaths. No cough with deep breathing. Effort and Inspection: Negative for tachypneic Cardio regular rate, regular rhythm, no rub and no gallops Cardio Narrative: No ectopy GI normal to inspection, nondistended, normoactive bowel sounds, soft to palpation, non-tender and non-distended GI Narrative: No guarding with palpation. Last bowel movement was yesterday. Extremity no calf tenderness General Extremity: Negative for edema Skin General Skin Exam: no breakdown Rashes: no rashes Neuro Neuro Narrative: Alert today and able to follow simple commands. Able to hold both arms up with no drift and both legs up with no drift. Minimal dysarthria. did not cough when eating and she is feeding herself. Good plantarflexion and dorsiflexion of the left foot. Decreased dorsiflexion of the right foot and mild decrease in plantarflexion. No tremors. No myoclonic jerks. No witnessed seizure activity. Today she knows that I am her doctor and she recognizes me and smiles. Psych cooperative and affect normal Psych Narrative: Making good eye contact. She is calm. No restlessness. Slow to process information but improving every day.. Assessment & Plan Assessment/Plan (1) Debility: (2) S/P stroke due to cerebrovascular disease: (3) 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: (4) Dysarthria: (5) Hemiplegia affecting right dominant side: QUALIFIERS: Hemiplegia type: flaccid Hemiplegia etiology: late effect of cerebrovascular disease Cerebrovascular disease type: cerebral infarction Qualified Code(s): I69.351 - Hemiplegia and hemiparesis following cerebral infarction affecting right dominant side (6) Aphasia complicating stroke: (7) Essential hypertension: (8) Hyperlipidemia: QUALIFIERS: Hyperlipidemia type: unspecified Qualified Code(s): E78.5 - Hyperlipidemia, unspecified (9) Macrocytic anemia: (10) Encephalitis: (11) Rheumatoid arthritis: QUALIFIERS: Rheumatoid arthritis location: unspecified site Rheumatoid factor presence: unspecified presence Qualified Code(s): M06.9 - Rheumatoid arthritis, unspecified (12) Overweight (BMI 25.0-29.9): (13) Mild aortic stenosis: (14) Stage 3 chronic kidney disease: QUALIFIERS: Chronic kidney disease stage 3 subtype: stage 3b (GFR 30-44) Qualified Code(s): N18.32 - Chronic kidney disease, stage 3b (15) Altered mental status: QUALIFIERS: Altered mental status type: stupor Qualified Code(s): R40.1 - Stupor (16) Seizure: PLAN: Was started on Keppra and has had no seizure activity since last Saturday. (17) Adverse drug reaction: QUALIFIERS: Encounter type: initial encounter Qualified Code(s): T50.905A - Adverse effect of unspecified drugs, medicaments and biological substances, initial encounter PLAN: Neurotoxicity with coma/seizure secondary to cefepime. Getting better every day. No new focal neurologic deficits. PLAN: Plan 1. Continue therapy 2. Hep-Lock IV fluids send continue to monitor fluid intake. Creat goes up quickly when she gets dehydrated. 3. Recheck a BMP on Dipesh. I instructed her daughter to encouraged good p.o. intake. 4. Transition to p.o. Keppra 250 mg twice daily and discontinue after the last dose on Saturday. 5. Making good progress every day with no new focal neurologic deficits. No need for MRI at this time. Likely had neurotoxicity from cefepime. Charges/Coding Visit Charges Inpatient E&M: 72432 Subs Hosp L1
[2024-12-01] MEDS: levETIRAcetam IV 250 MG in 0.9% Normal Saline (100mL Bag) 100 ML 410 MG IV ×2 (10:01→21:41)
[2024-12-01 11:19] VITALS: O2SAT 95
[2024-12-01 11:27] VITALS: O2SAT 95
[2024-12-01 11:41] VITALS: BMI 28.7
[2024-12-01 17:42] VITALS: BP 113/58; PULSE 76; RESP 17; TEMP 36.8; O2SAT 99
[2024-12-01 20:26] VITALS: BMI 28.7
[2024-12-01] MEDS: 0.9% Saline Lock 10 ML Syringe IV (21:46)
[2024-12-01 22:00] VITALS: PULSE 76; RESP 15; O2SAT 97
[2024-12-01] MEDS: 0.9% Normal Saline (250mL Bag) 250 ML 15 ML IV (22:12)
[2024-12-02 05:24] VITALS: BMI 28.1
[2024-12-02] MEDS: 0.9% Saline Lock 10 ML Syringe IV ×2 (05:40→09:31)
[2024-12-02 05:47] VITALS: BP 117/54; PULSE 55; RESP 15; TEMP 36.6; O2SAT 99
[2024-12-02] MEDS: Aspirin E.C. 81 MG Tablet PO (08:00)
[2024-12-02] MEDS: Heparin Injection (Vial) 5,000 UNIT/ML VIAL 5000 UNIT SC ×2 (08:01→20:53)
[2024-12-02] MEDS: levETIRAcetam IV 250 MG in 0.9% Normal Saline (100mL Bag) 100 ML 410 MG IV (09:31)
--- NOTE | 2024-12-02 12:17 | PN.REHAB_ITS ---
Subjective Subjective Patient seen, examined, she is lying in bed having breakfast, her daughter is present today. Of note, patient had recent EEG which showed encephalopathy, but no seizure activity. Objective Data Objective Data Vital Signs: Vital Signs Temp Pulse Resp BP Pulse Ox O2 Del Method O2 Flow Rate 97.9 F 55 L 15 117/54 L 99 Room Air 2 12/02/24 05:47 12/02/24 05:47 12/02/24 05:47 12/02/24 05:47 12/02/24 05:47 12/02/24 07:29 12/01/24 22:00 FiO2 21 11/20/24 21:55 Oxygen Flow Rate (L/min) 2 Oxygen Delivery Method Room Air Weight: 72 kg Body Mass Index (BMI) 28.1 Intake & Output: Intake and Output for Last 24 Hours 11/30/24 12/01/24 12/02/24 23:59 23:59 23:59 Intake Total 3345.0 / 3405.0 2426.75 / 2426.75 352.5 / 352.5 Output Total 100 / 100 150 / 150 Balance 3345.0 / 3405.0 2326.75 / 2326.75 202.5 / 202.5 Lab / Micro Data 11/30/24 08:43 11/30/24 08:43 Labs: Laboratory Results - last 24 hr 12/01/24 16:25: POC Glucose 122 H Micro: Microbiology 11/20/24 18:50 Urine Catheter - Catheter Urine Culture - Final Proteus hauseri 11/20/24 16:10 Stool Stool Occult Blood (ROSALBA) - Final Indicators for Scoring Admitted with or Primary Diagnosis of CVA/Stroke: Yes Hx of CVA/Stroke: No Modified [place] Score MRS Score at time of Evaluation: 4-Moderate/severe disability Physical Exam Const alert General Appearance: cooperative HEENT normocephalic Eyes PERRL and EOMs intact bilaterally Neck supple, no JVD and no carotid bruits Resp normal respiratory effort, normal air movement and clear to auscultation bilaterally Cardio regular rate and regular rhythm GI normal to inspection, nondistended, normoactive bowel sounds, non-tender and non-distended Extremity normal capillary refill General Extremity: Negative for edema Skin no rashes or lesions noted General Skin Exam: no breakdown Psych affect normal Appearance: appropriate Assessment & Plan Assessment/Plan (1) Debility: (2) Stroke: (3) Seizure: (4) Essential hypertension: (5) Osteoarthritis: (6) CKD stage 3a, GFR 45-59 ml/min: (7) Hyperlipidemia: QUALIFIERS: Hyperlipidemia type: unspecified Qualified Code(s): E 78.5 - Hyperlipidemia, unspecified PLAN: Plan 79 year old female with below past medical history hospitalized for stroke, admitted to for 3 hours daily rehabilitation and strengthening, prior to discharge home. * Debility - PT/OT/ST. * Pain - Tylenol 500mg q6 prn. * Bowel - senna/colace 2 tablets bid, Dulcolax 10mg pr x 1 prn, MOM 30mL po x 1 prn. * DVT prophyalxis - Heparin 5000 units q12. * Hypertension - Lisinopril 10mg daily, Amlodipine 5mg daily, Hydralazine 5mg iv q6 prn. * Stroke - Plavix 75mg daily, Aspirin 81mg daily thru 12/11/2024. * Hyperlipidemia - Atorvastatin 40mg qhs. * OA - Plaquenil 200mg bid. * Seizure - EEG encephalopathy, Keppra 250mg bid thru 12/05/2024 then stop. * Skin irritation - Calmoseptine topical bid. * Tinea Corporis - Nystatin powder topical bid.
[2024-12-02 15:40] VITALS: BMI 28.1
[2024-12-02 17:41] VITALS: BP 131/60; PULSE 63; RESP 16; TEMP 36.6; O2SAT 96
[2024-12-02] MEDS: Senna/Docusate Sodium 1 Tablet 2 TABLET PO (20:53)
[2024-12-03 05:00] VITALS: BMI 28.1
[2024-12-03 06:00] VITALS: BP 135/65; PULSE 60; RESP 16; TEMP 36.3; O2SAT 100
[2024-12-03 07:16] VITALS: O2SAT 100
[2024-12-03] MEDS: Senna/Docusate Sodium 1 Tablet 2 TABLET PO ×2 (07:37→20:55)
[2024-12-03] MEDS: Aspirin E.C. 81 MG Tablet PO (07:37)
[2024-12-03] MEDS: Heparin Injection (Vial) 5,000 UNIT/ML VIAL 5000 UNIT SC ×2 (07:37→20:55)
[2024-12-03] MEDS: 0.9% Saline Lock 10 ML Syringe IV ×2 (07:43→20:57)
[2024-12-03 15:40] VITALS: BMI 28.1
[2024-12-03 18:00] VITALS: BP 140/65; PULSE 74; RESP 16; TEMP 36.8; O2SAT 98
[2024-12-04 01:50] VITALS: BMI 28.1
[2024-12-04 02:35] VITALS: O2SAT 99
[2024-12-04 06:00] VITALS: BP 133/58; PULSE 58; RESP 16; TEMP 36.4; O2SAT 99; BMI 27.7
[2024-12-04] MEDS: Aspirin E.C. 81 MG Tablet PO (08:00)
[2024-12-04] MEDS: Heparin Injection (Vial) 5,000 UNIT/ML VIAL 5000 UNIT SC ×2 (08:00→21:55)
[2024-12-04] MEDS: Senna/Docusate Sodium 1 Tablet 2 TABLET PO ×2 (08:00→21:55)
--- NOTE | 2024-12-04 08:30 | PN.REHAB_ITS ---
Subjective Subjective Patient seen, examined. She is sitting in chair, eating breakfast. She has no new complaints. I discussed with nursing staff, no overnight issues. Objective Data Objective Data Vital Signs: Vital Signs Temp Pulse Resp BP Pulse Ox O2 Del Method O2 Flow Rate 97.6 F L 58 L 16 133/58 H 99 Nasal Cannula 2 12/04/24 06:00 12/04/24 06:00 12/04/24 06:00 12/04/24 06:00 12/04/24 06:00 12/04/24 06:00 12/04/24 06:26 FiO2 21 11/20/24 21:55 Oxygen Flow Rate (L/min) 2 Oxygen Delivery Method Nasal Cannula Weight: 72 kg Body Mass Index (BMI) 28.1 Intake & Output: Intake and Output for Last 24 Hours 12/02/24 12/03/24 12/04/24 23:59 23:59 23:59 Intake Total 892.5 / 892.5 580 / 580 120 / 120 Output Total 150 / 150 Balance 742.5 / 742.5 580 / 580 120 / 120 Lab / Micro Data 11/30/24 08:43 11/30/24 08:43 Micro: Microbiology 11/20/24 18:50 Urine Catheter - Catheter Urine Culture - Final Proteus hauseri 11/20/24 16:10 Stool Stool Occult Blood (ROSALBA) - Final Indicators for Scoring Admitted with or Primary Diagnosis of CVA/Stroke: Yes Hx of CVA/Stroke: No Modified [place] Score MRS Score at time of Evaluation: 4-Moderate/severe disability Physical Exam Const alert General Appearance: cooperative HEENT normocephalic Eyes PERRL and EOMs intact bilaterally Neck supple, no JVD and no carotid bruits Resp normal respiratory effort, normal air movement and clear to auscultation bilaterally Cardio regular rate and regular rhythm GI normal to inspection, nondistended, normoactive bowel sounds, non-tender and non-distended Extremity normal capillary refill General Extremity: Negative for edema Skin no rashes or lesions noted General Skin Exam: no breakdown Psych affect normal Appearance: appropriate Assessment & Plan Assessment/Plan (1) Debility: (2) Stroke: (3) Seizure: (4) Essential hypertension: (5) Osteoarthritis: (6) CKD stage 3a, GFR 45-59 ml/min: (7) Hyperlipidemia: QUALIFIERS: Hyperlipidemia type: unspecified Qualified Code(s): E 78.5 - Hyperlipidemia, unspecified PLAN: Plan 79 year old female with below past medical history hospitalized for stroke, admitted to for 3 hours daily rehabilitation and strengthening, prior to discharge home. * Debility - PT/OT/ST. * Pain - Tylenol 500mg q6 prn. * Bowel - senna/colace 2 tablets bid, Dulcolax 10mg pr x 1 prn, MOM 30mL po x 1 prn. * DVT prophyalxis - Heparin 5000 units q12. * Hypertension - Lisinopril 10mg daily, Amlodipine 5mg daily, Hydralazine 5mg iv q6 prn. * Stroke - Plavix 75mg daily, Aspirin 81mg daily thru 12/11/2024. * Hyperlipidemia - Atorvastatin 40mg qhs. * OA - Plaquenil 200mg bid. * Seizure - EEG encephalopathy, Keppra 250mg bid thru 12/05/2024 then stop. * Skin irritation - Calmoseptine topical bid. * Tinea Corporis - Nystatin powder topical bid.
[2024-12-04 16:44] VITALS: BMI 27.7
[2024-12-04 17:38] VITALS: BP 126/56; PULSE 62; RESP 16; TEMP 36.4; O2SAT 97
[2024-12-05] VITALS: O2SAT 94
[2024-12-05 05:47] VITALS: BP 135/65; PULSE 70; RESP 18; TEMP 36.7; O2SAT 98
[2024-12-05 07:14] VITALS: O2SAT 100
[2024-12-05] MEDS: Aspirin E.C. 81 MG Tablet PO (07:54)
[2024-12-05] MEDS: Senna/Docusate Sodium 1 Tablet 2 TABLET PO ×2 (07:54→21:04)
[2024-12-05 08:00] VITALS: BP 123/59; PULSE 71
[2024-12-05] MEDS: Heparin Injection (Vial) 5,000 UNIT/ML VIAL 5000 UNIT SC ×2 (11:03→21:04)
[2024-12-05 11:55] VITALS: BMI 27.7
[2024-12-05 18:00] VITALS: BP 120/80; PULSE 80; RESP 16; TEMP 36.3; O2SAT 99
[2024-12-06] VITALS: O2SAT 98
[2024-12-06 06:00] VITALS: BP 121/62; PULSE 60; RESP 17; TEMP 37.1; O2SAT 98
[2024-12-06] MEDS: Senna/Docusate Sodium 1 Tablet 2 TABLET PO ×2 (07:45→21:45)
[2024-12-06] MEDS: Aspirin E.C. 81 MG Tablet PO (07:45)
[2024-12-06 07:50] VITALS: O2SAT 100
[2024-12-06 07:51] VITALS: BP 132/54; PULSE 80
[2024-12-06] MEDS: Heparin Injection (Vial) 5,000 UNIT/ML VIAL 5000 UNIT SC ×2 (09:24→21:44)
[2024-12-06 11:18] VITALS: BMI 27.7
[2024-12-06 17:12] VITALS: BP 133/69; PULSE 75; RESP 16; TEMP 36.4; O2SAT 96
[2024-12-07 02:34] VITALS: BMI 27.7
[2024-12-07 06:00] VITALS: BP 139/68; PULSE 68; RESP 18; TEMP 36.6; O2SAT 99; BMI 27.6
[2024-12-07] MEDS: Aspirin E.C. 81 MG Tablet PO (07:51)
[2024-12-07 07:52] VITALS: O2SAT 99
--- NOTE | 2024-12-07 07:56 | PN.REHAB_ITS ---
Subjective Subjective Patient seen, examined, no new complaints, eating breakfast. Objective Data Objective Data Vital Signs: Vital Signs Temp Pulse Resp BP Pulse Ox O2 Del Method O2 Flow Rate 97.9 F 68 18 139/68 H 99 Nasal Cannula 2 12/07/24 06:00 12/07/24 06:00 12/07/24 06:00 12/07/24 06:00 12/07/24 06:00 12/07/24 06:00 12/07/24 06:00 FiO2 21 11/20/24 21:55 Oxygen Flow Rate (L/min) 2 Oxygen Delivery Method Nasal Cannula Weight: 70.7 kg Body Mass Index (BMI) 27.6 Intake & Output: Intake and Output for Last 24 Hours 12/05/24 12/06/24 12/07/24 23:59 23:59 23:59 Intake Total 1380 / 1380 1035 / 1035 300 / 300 Output Total 675 / 675 450 / 450 100 / 100 Balance 705 / 705 585 / 585 200 / 200 Lab / Micro Data 11/30/24 08:43 11/30/24 08:43 Micro: Microbiology 11/20/24 18:50 Urine Catheter - Catheter Urine Culture - Final Proteus hauseri 11/20/24 16:10 Stool Stool Occult Blood (ROSALBA) - Final Indicators for Scoring Admitted with or Primary Diagnosis of CVA/Stroke: Yes Hx of CVA/Stroke: No Modified [place] Score MRS Score at time of Evaluation: 4-Moderate/severe disability Physical Exam Const alert General Appearance: cooperative HEENT normocephalic Eyes PERRL and EOMs intact bilaterally Neck supple, no JVD and no carotid bruits Resp normal respiratory effort, normal air movement and clear to auscultation bilaterally Cardio regular rate and regular rhythm GI normal to inspection, nondistended, normoactive bowel sounds, non-tender and non-distended Extremity normal capillary refill General Extremity: Negative for edema Skin no rashes or lesions noted General Skin Exam: no breakdown Psych affect normal Appearance: appropriate Assessment & Plan Assessment/Plan (1) Debility: (2) Stroke: (3) Seizure: (4) Essential hypertension: (5) Osteoarthritis: (6) CKD stage 3a, GFR 45-59 ml/min: (7) Hyperlipidemia: QUALIFIERS: Hyperlipidemia type: unspecified Qualified Code(s): E 78.5 - Hyperlipidemia, unspecified PLAN: Plan 79 year old female with below past medical history hospitalized for stroke, admitted to for 3 hours daily rehabilitation and strengthening, prior to discharge home. * Debility - PT/OT/ST. * Pain - Tylenol 500mg q6 prn. * Bowel - senna/colace 2 tablets bid, Dulcolax 10mg pr x 1 prn, MOM 30mL po x 1 prn. * DVT prophyalxis - Heparin 5000 units q12. * Hypertension - Lisinopril 10mg daily, Amlodipine 5mg daily, Hydralazine 5mg iv q6 prn. * Stroke - Plavix 75mg daily, Aspirin 81mg daily thru 12/11/2024. * Hyperlipidemia - Atorvastatin 40mg qhs. * OA - Plaquenil 200mg bid. * Seizure - EEG encephalopathy, Keppra 250mg bid thru 12/05/2024 then stop. * Skin irritation - Calmoseptine topical bid. * Tinea Corporis - Nystatin powder topical bid.
[2024-12-07 07:58] VITALS: BP 150/80; PULSE 65
--- NOTE | 2024-12-07 08:09 | CASEMGMT ---
Social Work IDT met with patient, dtr and son for Team meeting. Discussed patient's progress in PT/OT/ST/SN/MD/COM WRITER. Pt remains with [facility]. Pt has made improvements over the last week - more alert, improved appetite. Will ReTeam weekly and SW to assist with DC planning. Jessica Ewing SHELTER DIRECTOR ENDODONTIC ASSISTANT
[2024-12-07] MEDS: Heparin Injection (Vial) 5,000 UNIT/ML VIAL 5000 UNIT SC ×2 (09:19→21:01)
[2024-12-07 13:45] VITALS: BMI 27.6
[2024-12-07 17:40] VITALS: BP 125/66; PULSE 72; RESP 18; TEMP 36.5; O2SAT 100
[2024-12-07] MEDS: Senna/Docusate Sodium 1 Tablet 2 TABLET PO (21:01)
[2024-12-08 02:05] VITALS: BMI 27.6
[2024-12-08 05:31] VITALS: BP 130/68; PULSE 69; RESP 16; TEMP 36.6; O2SAT 94
[2024-12-08 07:04] VITALS: O2SAT 96
[2024-12-08] MEDS: Heparin Injection (Vial) 5,000 UNIT/ML VIAL 5000 UNIT SC ×2 (07:53→21:24)
[2024-12-08] MEDS: Senna/Docusate Sodium 1 Tablet 2 TABLET PO ×2 (07:54→21:24)
[2024-12-08] MEDS: Aspirin E.C. 81 MG Tablet PO (07:54)
--- NOTE | 2024-12-08 08:15 | PN.REHAB_ITS ---
Subjective Subjective Patient seen, examined. She feels well, no acute events overnight, continues to progress slowly in therapy. Objective Data Objective Data Vital Signs: Vital Signs Temp Pulse Resp BP Pulse Ox O2 Del Method O2 Flow Rate 97.8 F 69 16 130/68 H 94 Room Air 2 12/08/24 05:31 12/08/24 05:31 12/08/24 05:31 12/08/24 05:31 12/08/24 05:31 12/08/24 05:31 12/07/24 06:00 FiO2 21 11/20/24 21:55 Oxygen Flow Rate (L/min) 2 Oxygen Delivery Method Room Air Weight: 70.7 kg Body Mass Index (BMI) 27.6 Intake & Output: Intake and Output for Last 24 Hours 12/06/24 12/07/24 12/08/24 23:59 23:59 23:59 Intake Total 1035 / 1035 1200 / 1200 Output Total 450 / 450 400 / 400 Balance 585 / 585 800 / 800 Lab / Micro Data 11/30/24 08:43 11/30/24 08:43 Micro: Microbiology 11/20/24 18:50 Urine Catheter - Catheter Urine Culture - Final Proteus hauseri 11/20/24 16:10 Stool Stool Occult Blood (ROSALBA) - Final Indicators for Scoring Admitted with or Primary Diagnosis of CVA/Stroke: Yes Hx of CVA/Stroke: No Modified [place] Score MRS Score at time of Evaluation: 4-Moderate/severe disability Physical Exam Const alert General Appearance: cooperative HEENT normocephalic Eyes PERRL and EOMs intact bilaterally Neck supple, no JVD and no carotid bruits Resp normal respiratory effort, normal air movement and clear to auscultation bilaterally Cardio regular rate and regular rhythm GI normal to inspection, nondistended, normoactive bowel sounds, non-tender and non-distended Extremity normal capillary refill General Extremity: Negative for edema Skin no rashes or lesions noted General Skin Exam: no breakdown Psych affect normal Appearance: appropriate Assessment & Plan Assessment/Plan (1) Debility: (2) Stroke: (3) Seizure: (4) Essential hypertension: (5) Osteoarthritis: (6) CKD stage 3a, GFR 45-59 ml/min: (7) Hyperlipidemia: QUALIFIERS: Hyperlipidemia type: unspecified Qualified Code(s): E 78.5 - Hyperlipidemia, unspecified PLAN: Plan 79 year old female with below past medical history hospitalized for stroke, admitted to for 3 hours daily rehabilitation and strengthening, prior to discharge home. * Debility - PT/OT/ST. * Pain - Tylenol 500mg q6 prn. * Bowel - senna/colace 2 tablets bid, Dulcolax 10mg pr x 1 prn, MOM 30mL po x 1 prn. * DVT prophyalxis - Heparin 5000 units q12. * Hypertension - Lisinopril 10mg daily, Amlodipine 5mg daily, Hydralazine 5mg iv q6 prn. * Stroke - Plavix 75mg daily, Aspirin 81mg daily thru 12/11/2024. * Hyperlipidemia - Atorvastatin 40mg qhs. * OA - Plaquenil 200mg bid. * Seizure - EEG encephalopathy, Keppra 250mg bid thru 12/05/2024 then stop. * Skin irritation - Calmoseptine topical bid. * Tinea Corporis - Nystatin powder topical bid.
[2024-12-08 13:25] VITALS: BMI 27.6
[2024-12-09 00:35] VITALS: BMI 27.6
[2024-12-09 06:00] VITALS: BP 142/63; PULSE 67; RESP 15; TEMP 36.3; O2SAT 94
[2024-12-09 08:10] VITALS: O2SAT 95
--- NOTE | 2024-12-09 08:33 | PN.REHAB_ITS ---
Subjective Subjective Patient seen, examined. She is sitting in chair, eating breakfast, no acute events overnight, no complaints. She appears well. Objective Data Objective Data Vital Signs: Vital Signs Temp Pulse Resp BP Pulse Ox O2 Del Method O2 Flow Rate 97.4 F L 67 15 142/63 H 95 Room Air 2 12/09/24 06:00 12/09/24 06:00 12/09/24 06:00 12/09/24 06:00 12/09/24 08:10 12/09/24 08:10 12/09/24 06:00 FiO2 21 11/20/24 21:55 Oxygen Flow Rate (L/min) 2 Oxygen Delivery Method Room Air Weight: 70.7 kg Body Mass Index (BMI) 27.6 Intake & Output: Intake and Output for Last 24 Hours 12/07/24 12/08/24 12/09/24 23:59 23:59 23:59 Intake Total 1200 / 1200 800 / 800 Output Total 400 / 400 250 / 250 150 / 150 Balance 800 / 800 550 / 550 -150 / -150 Lab / Micro Data 11/30/24 08:43 11/30/24 08:43 Micro: Microbiology 11/20/24 18:50 Urine Catheter - Catheter Urine Culture - Final Proteus hauseri 11/20/24 16:10 Stool Stool Occult Blood (ROSALBA) - Final Indicators for Scoring Admitted with or Primary Diagnosis of CVA/Stroke: Yes Hx of CVA/Stroke: No Modified [place] Score MRS Score at time of Evaluation: 4-Moderate/severe disability Physical Exam Const alert General Appearance: cooperative HEENT normocephalic Eyes PERRL and EOMs intact bilaterally Neck supple, no JVD and no carotid bruits Resp normal respiratory effort, normal air movement and clear to auscultation bilaterally Cardio regular rate and regular rhythm GI normal to inspection, nondistended, normoactive bowel sounds, non-tender and non-distended Extremity normal capillary refill General Extremity: Negative for edema Skin no rashes or lesions noted General Skin Exam: no breakdown Psych affect normal Appearance: appropriate Assessment & Plan Assessment/Plan (1) Debility: (2) Stroke: (3) Seizure: (4) Essential hypertension: (5) Osteoarthritis: (6) CKD stage 3a, GFR 45-59 ml/min: (7) Hyperlipidemia: QUALIFIERS: Hyperlipidemia type: unspecified Qualified Code(s): E 78.5 - Hyperlipidemia, unspecified PLAN: Plan 79 year old female with below past medical history hospitalized for stroke, admitted to for 3 hours daily rehabilitation and strengthening, prior to discharge home. * Debility - PT/OT/ST. * Pain - Tylenol 500mg q6 prn. * Bowel - senna/colace 2 tablets bid, Dulcolax 10mg pr x 1 prn, MOM 30mL po x 1 prn. * DVT prophyalxis - Heparin 5000 units q12. * Hypertension - Lisinopril 10mg daily, Amlodipine 5mg daily, Hydralazine 5mg iv q6 prn. * Stroke - Plavix 75mg daily, Aspirin 81mg daily thru 12/11/2024. * Hyperlipidemia - Atorvastatin 40mg qhs. * OA - Plaquenil 200mg bid. * Seizure - EEG showed encephalopathy, off Keppra. * Skin irritation - Calmoseptine topical bid. * Tinea Corporis - Nystatin powder topical bid.
[2024-12-09] MEDS: Aspirin E.C. 81 MG Tablet PO (08:38)
[2024-12-09] MEDS: Heparin Injection (Vial) 5,000 UNIT/ML VIAL 5000 UNIT SC ×2 (08:38→21:32)
[2024-12-09 13:13] VITALS: BMI 27.6
[2024-12-09 17:57] VITALS: BP 133/70; PULSE 70; RESP 16; TEMP 36.5; O2SAT 98
[2024-12-10 01:05] VITALS: BMI 27.6
[2024-12-10 06:00] VITALS: BP 143/66; PULSE 72; RESP 16; TEMP 36.6; O2SAT 98; BMI 27.7
[2024-12-10 06:28] VITALS: BMI 27.7
[2024-12-10 07:29] VITALS: O2SAT 96
[2024-12-10] MEDS: Senna/Docusate Sodium 1 Tablet 2 TABLET PO ×2 (08:59→21:08)
[2024-12-10] MEDS: Heparin Injection (Vial) 5,000 UNIT/ML VIAL 5000 UNIT SC ×2 (08:59→21:08)
[2024-12-10] MEDS: Aspirin E.C. 81 MG Tablet PO (08:59)
[2024-12-10 09:04] VITALS: BP 110/64; PULSE 75
--- NOTE | 2024-12-10 13:21 | PN_ITS ---
Subjective Subjective I met with Melisa in her room. She is sitting up in a recliner and in good spirits. She states how grateful she is for the staff as she was fearful she would never walk again. She has no complaints except for "stiffness" in her right arm. She states "its always stiff." Melisa is doing very well and is looking forward to a visit from family this afternoon. Objective Data Objective Data Vital Signs: Vital Signs Temp Pulse Resp BP Pulse Ox O2 Del Method O2 Flow Rate 98 F 75 16 110/64 96 Room Air 2 12/10/24 06:00 12/10/24 09:04 12/10/24 06:00 12/10/24 09:04 12/10/24 07:29 12/10/24 07:29 12/09/24 06:00 FiO2 21 11/20/24 21:55 Oxygen Flow Rate (L/min) 2 Oxygen Delivery Method Room Air Weight: 156 lb 8.451 oz Body Mass Index (BMI) 27.7 Intake & Output: Intake and Output for Last 24 Hours 12/08/24 12/09/24 12/10/24 23:59 23:59 23:59 Intake Total 800 / 800 1520 / 1520 120 / 120 Output Total 250 / 250 550 / 550 450 / 450 Balance 550 / 550 970 / 970 -330 / -330 Lab / Micro Data 11/30/24 08:43 11/30/24 08:43 Micro: Microbiology 11/20/24 18:50 Urine Catheter - Catheter Urine Culture - Final Proteus hauseri 11/20/24 16:10 Stool Stool Occult Blood (ROSALBA) - Final Physical Exam Const alert and oriented x3 General Appearance: cooperative Orientation / Consciousness: awake, oriented to person, oriented to place and oriented to time Exam Limitations: no limitations HEENT normocephalic Mouth: oral and palatal mucosa normal Eyes PERRL Eyes Narrative: Pupils are 4 mm with the left pupil being sluggish and the right pupil being brisk. Neck full ROM Lymph Lymphatic: no lymphadenopathy noted Chest inspection of chest normal Chest: symmetrical chest wall rise Resp normal respiratory effort, no use of accessory muscles and clear to auscultation bilaterally Effort and Inspection: able to speak in complete sentences Auscultation: clear to auscultation bilaterally Cardio regular rate, regular rhythm, S1 normal heart sound, S2 normal heart sound, no murmurs, no rub and no gallops Rhythm: regular rhythm Heart Sounds: S1 normal and S2 normal Peripheral Pulses: pulses 2+ throughout GI normal to inspection, nondistended, normoactive bowel sounds, non-tender and non-distended GI Narrative: no guarding with palpation Palpation: soft no CVA tenderness Back/Spine no CVA tenderness Extremity no clubbing, cyanosis or edema General Extremity: other findings Other Details: And hose in place Skin no rashes or lesions noted, no wounds and no jaundice Skin Narrative: Some bruising to bilateral forearms Neuro oriented x3 and CN's II-XII intact bilaterally Neuro Narrative: See NIH Sensorium / Orientation: alert Psych affect normal Psych Narrative: appropriate, makes good eye contact Appearance: appropriate Attitude: calm and engaged Activity / Motor Behavior: appropriate eye contact Assessment & Plan Assessment/Plan (1) Debility: PLAN: *continue therapies *Fall precautions *Monitor I's and O's *Weekly weights *PT for gait stability *OT for ADLs *ST for evaluation *Bowel protocol (2) S/P stroke due to cerebrovascular disease: PLAN: *Plavix 75 mg p.o. daily *Aspirin 81 mg p.o. daily *DVT prophylaxis: Heparin 5000 units SQ every 12 hours *JOSE GUADALUPE hose *Monitor neurological status *Assess for anxiety and depression. (3) Essential hypertension: PLAN: *Vital signs every shift *Amlodipine 5 mg p.o. daily *Lisinopril 20 mg p.o. daily *Low-salt low-cholesterol cardiac diet (4) Macrocytic anemia: PLAN: *Hemoccult stool *Serum B12 level *Serum folate level *Monitor CBC every 3 days (5) Hyperlipidemia: QUALIFIERS: Hyperlipidemia type: unspecified Qualified Code(s): E 78.5 - Hyperlipidemia, unspecified PLAN: *Lipitor 20 mg p.o. nightly Charges/Coding Visit Charges Inpatient E&M: 86501 Init Hosp L1
[2024-12-10 17:00] VITALS: BMI 27.7
[2024-12-10 18:00] VITALS: BP 139/63; PULSE 78; RESP 16; TEMP 36.4; O2SAT 97
[2024-12-11 02:16] VITALS: BMI 27.7
[2024-12-11 06:00] VITALS: BP 152/68; PULSE 78; RESP 17; TEMP 36.8; O2SAT 94
--- NOTE | 2024-12-11 09:11 | NURSING ---
This RN is aware of Vital Signs taken this morning around 6am.
[2024-12-11] MEDS: Heparin Injection (Vial) 5,000 UNIT/ML VIAL 5000 UNIT SC ×2 (10:11→21:19)
[2024-12-11] MEDS: Senna/Docusate Sodium 1 Tablet 2 TABLET PO ×2 (10:13→21:20)
[2024-12-11] MEDS: Aspirin E.C. 81 MG Tablet PO (10:15)
[2024-12-11 11:25] VITALS: BMI 27.7
[2024-12-11 17:06] VITALS: BP 123/61; PULSE 71; RESP 18; TEMP 37.3; O2SAT 95
[2024-12-12 05:40] VITALS: BP 165/63; PULSE 71; RESP 16; TEMP 36.5; O2SAT 97
[2024-12-12] MEDS: Heparin Injection (Vial) 5,000 UNIT/ML VIAL 5000 UNIT SC ×2 (08:51→21:17)
[2024-12-12] MEDS: Senna/Docusate Sodium 1 Tablet 2 TABLET PO ×2 (08:51→21:17)
[2024-12-12 17:39] VITALS: BP 133/62; PULSE 91; RESP 16; TEMP 37; O2SAT 95
[2024-12-12 23:29] VITALS: BMI 27.7
[2024-12-13 05:16] VITALS: BP 125/55; PULSE 65; RESP 18; TEMP 36.6; O2SAT 95
[2024-12-13 05:52] VITALS: BMI 27.4
[2024-12-13] MEDS: Heparin Injection (Vial) 5,000 UNIT/ML VIAL 5000 UNIT SC ×2 (07:59→21:26)
[2024-12-13] MEDS: Senna/Docusate Sodium 1 Tablet 2 TABLET PO ×2 (07:59→21:27)
[2024-12-13 17:16] VITALS: BP 117/66; PULSE 74; RESP 17; TEMP 36.8; O2SAT 94
[2024-12-13 21:08] VITALS: BMI 27.4
[2024-12-13 22:00] VITALS: PULSE 74; RESP 17; O2SAT 94
[2024-12-14 06:00] VITALS: BP 126/69; PULSE 66; RESP 17; TEMP 36.4; O2SAT 95
--- NOTE | 2024-12-14 07:36 | PN.REHAB_ITS ---
Subjective Subjective Patient seen, examined. She is sitting in bed, eating breakfast, no acute events overnight, she has no new complaints. Objective Data Objective Data Vital Signs: Vital Signs Temp Pulse Resp BP Pulse Ox O2 Del Method O2 Flow Rate 97.6 F L 66 17 126/69 H 95 Room Air 2 12/14/24 06:00 12/14/24 06:00 12/14/24 06:00 12/14/24 06:00 12/14/24 06:00 12/14/24 06:00 12/13/24 22:00 FiO2 21 11/20/24 21:55 Oxygen Flow Rate (L/min) 2 Oxygen Delivery Method Room Air Weight: 70.2 kg Body Mass Index (BMI) 27.4 Intake & Output: Intake and Output for Last 24 Hours 12/12/24 12/13/24 12/14/24 23:59 23:59 23:59 Intake Total 880 / 880 630 / 630 150 / 150 Output Total 775 / 775 625 / 625 Balance 105 / 105 5 / 5 150 / 150 Lab / Micro Data 11/30/24 08:43 11/30/24 08:43 Micro: Microbiology 11/20/24 18:50 Urine Catheter - Catheter Urine Culture - Final Proteus hauseri 11/20/24 16:10 Stool Stool Occult Blood (ROSALBA) - Final Indicators for Scoring Admitted with or Primary Diagnosis of CVA/Stroke: Yes Hx of CVA/Stroke: No Modified Myranda Score MRS Score at time of Evaluation: 4-Moderate/severe disability Physical Exam Const alert and oriented x3 General Appearance: cooperative Orientation / Consciousness: awake, oriented to person, oriented to place and oriented to time Exam Limitations: no limitations HEENT normocephalic Mouth: oral and palatal mucosa normal Eyes PERRL Neck full ROM Lymph Lymphatic: no lymphadenopathy noted Chest inspection of chest normal Chest: symmetrical chest wall rise Resp normal respiratory effort, no use of accessory muscles and clear to auscultation bilaterally Effort and Inspection: able to speak in complete sentences Auscultation: clear to auscultation bilaterally Cardio regular rate, regular rhythm, S1 normal heart sound, S2 normal heart sound, no murmurs, no rub and no gallops Rhythm: regular rhythm Heart Sounds: S1 normal and S2 normal Peripheral Pulses: pulses 2+ throughout GI normal to inspection, nondistended, normoactive bowel sounds, non-tender and non-distended GI Narrative: no guarding with palpation Palpation: soft no CVA tenderness Back/Spine no CVA tenderness Extremity no clubbing, cyanosis or edema General Extremity: other findings Other Details: And hose in place Skin no rashes or lesions noted, no wounds and no jaundice Skin Narrative: Some bruising to bilateral forearms General Skin Exam: no breakdown Neuro oriented x3 and CN's II-XII intact bilaterally Neuro Narrative: See NIH Sensorium / Orientation: alert Psych affect normal Psych Narrative: appropriate, makes good eye contact Appearance: appropriate Attitude: calm and engaged Activity / Motor Behavior: appropriate eye contact Assessment & Plan Assessment/Plan (1) Debility: (2) Stroke: (3) Seizure: (4) Essential hypertension: (5) Osteoarthritis: (6) CKD stage 3a, GFR 45-59 ml/min: (7) Hyperlipidemia: QUALIFIERS: Hyperlipidemia type: unspecified Qualified Code(s): E 78.5 - Hyperlipidemia, unspecified PLAN: Plan 79 year old female with below past medical history hospitalized for stroke, admitted to for 3 hours daily rehabilitation and strengthening, prior to discharge home. * Debility - PT/OT/ST. * Pain - Tylenol 500mg q6 prn. * Bowel - senna/colace 2 tablets bid, Dulcolax 10mg pr x 1 prn, MOM 30mL po x 1 prn. * DVT prophyalxis - Heparin 5000 units q12. * Hypertension - Lisinopril 10mg daily, Amlodipine 5mg daily, Hydralazine 5mg iv q6 prn. * Stroke - Plavix 75mg daily, Aspirin 81mg daily thru 12/11/2024. * Hyperlipidemia - Atorvastatin 40mg qhs. * OA - Plaquenil 200mg bid. * Seizure - EEG showed encephalopathy, off Keppra. * Skin irritation - Calmoseptine topical bid. * Tinea Corporis - Nystatin powder topical bid.
[2024-12-14] MEDS: Heparin Injection (Vial) 5,000 UNIT/ML VIAL 5000 UNIT SC ×2 (07:49→21:39)
[2024-12-14] MEDS: Senna/Docusate Sodium 1 Tablet 2 TABLET PO ×2 (07:50→21:39)
--- NOTE | 2024-12-14 08:14 | CASEMGMT ---
Social Work IDT met with patient and two dtr's for Team meeting. Discussed patient's progress in PT/OT/ST/SN/MD. Pt is under [facility] 2. Dtr inquired about pt discharging home this week. SW inquired about ramp installed. Dtr denied ramp has not been started, but "there are plenty of people to help get pt in the house". SW explained pt is total -modA for all tasks/ADLs and pt will need that assistance at home. Once dtr states she lives with pt and has grown dtrs that can also assist. SW reiterated 17/09 care and requested to schedule family therapy training to ensure they can assist pt at home. Dtr agreed and scheduled for 12/16 at 0800. Dtr stated she would like pt DC'd this week. SW stated if therapy training goes well, offered DC 12/19. Dtrs agreed and inquired about HHC. SW agreed to assist with coordinating skilled HHC. Since pt is [facility], SW inquired if family is familiar with [facility] - dtr's confirmed and dtr is agreeable to use them. SW to place that referral for anticipated DC 12/19. Family denied DME needs. SW will continue to follow after therapy training to confirm DC date/plans. Jessica Ewing MSW COMPENSATION INTERN
[2024-12-14 16:19] VITALS: BMI 27.4
[2024-12-14 16:40] VITALS: BP 119/65; PULSE 70; RESP 16; TEMP 36.8; O2SAT 96
[2024-12-14 22:00] VITALS: PULSE 70; RESP 16; O2SAT 96
[2024-12-15 00:35] VITALS: RESP 16; O2SAT 96
[2024-12-15 00:48] VITALS: BMI 27.4
[2024-12-15 06:00] VITALS: BP 122/59; PULSE 62; RESP 16; TEMP 36.8; O2SAT 96
[2024-12-15] MEDS: Heparin Injection (Vial) 5,000 UNIT/ML VIAL 5000 UNIT SC ×2 (08:00→21:27)
[2024-12-15] MEDS: Senna/Docusate Sodium 1 Tablet 2 TABLET PO ×2 (08:01→21:27)
--- NOTE | 2024-12-15 08:38 | PN.REHAB_ITS ---
Subjective Subjective Patient seen, examined. No acute events overnight. She is sitting up in bed, finished her breakfast, she has no new complaints. Plan is for her to discharge home with assistance, IDT recommended ramp for home. Objective Data Objective Data Vital Signs: Vital Signs Temp Pulse Resp BP Pulse Ox O2 Del Method O2 Flow Rate 98.2 F 62 16 122/59 H 96 Nasal Cannula 2 12/15/24 06:00 12/15/24 06:00 12/15/24 06:00 12/15/24 06:00 12/15/24 06:00 12/15/24 06:00 12/15/24 06:00 FiO2 21 11/20/24 21:55 Oxygen Flow Rate (L/min) 2 Oxygen Delivery Method Nasal Cannula Weight: 70.2 kg Body Mass Index (BMI) 27.4 Intake & Output: Intake and Output for Last 24 Hours 12/13/24 12/14/24 12/15/24 23:59 23:59 23:59 Intake Total 630 / 630 1630 / 1630 Output Total 625 / 625 450 / 450 Balance 1180 / 1180 Lab / Micro Data 11/30/24 08:43 11/30/24 08:43 Micro: Microbiology 11/20/24 18:50 Urine Catheter - Catheter Urine Culture - Final Proteus hauseri 11/20/24 16:10 Stool Stool Occult Blood (ROSALBA) - Final Indicators for Scoring Admitted with or Primary Diagnosis of CVA/Stroke: Yes Hx of CVA/Stroke: No Modified Myranda Score MRS Score at time of Evaluation: 4-Moderate/severe disability Physical Exam Const alert and oriented x3 General Appearance: cooperative Orientation / Consciousness: awake, oriented to person, oriented to place and oriented to time Exam Limitations: no limitations HEENT normocephalic Mouth: oral and palatal mucosa normal Eyes PERRL Neck full ROM Lymph Lymphatic: no lymphadenopathy noted Chest inspection of chest normal Chest: symmetrical chest wall rise Resp normal respiratory effort, no use of accessory muscles and clear to auscultation bilaterally Effort and Inspection: able to speak in complete sentences Auscultation: clear to auscultation bilaterally Cardio regular rate, regular rhythm, S1 normal heart sound, S2 normal heart sound, no murmurs, no rub and no gallops Rhythm: regular rhythm Heart Sounds: S1 normal and S2 normal Peripheral Pulses: pulses 2+ throughout GI normal to inspection, nondistended, normoactive bowel sounds, non-tender and non-distended GI Narrative: no guarding with palpation Palpation: soft no CVA tenderness Back/Spine no CVA tenderness Extremity no clubbing, cyanosis or edema General Extremity: other findings Other Details: And hose in place Skin no rashes or lesions noted, no wounds and no jaundice Skin Narrative: Some bruising to bilateral forearms General Skin Exam: no breakdown Neuro oriented x3 and CN's II-XII intact bilaterally Neuro Narrative: See NIH Sensorium / Orientation: alert Psych affect normal Psych Narrative: appropriate, makes good eye contact Appearance: appropriate Attitude: calm and engaged Activity / Motor Behavior: appropriate eye contact Assessment & Plan Assessment/Plan (1) Debility: (2) Stroke: (3) Seizure: (4) Essential hypertension: (5) Osteoarthritis: (6) CKD stage 3a, GFR 45-59 ml/min: (7) Hyperlipidemia: QUALIFIERS: Hyperlipidemia type: unspecified Qualified Code(s): E 78.5 - Hyperlipidemia, unspecified PLAN: Plan 79 year old female with below past medical history hospitalized for stroke, admitted to for 3 hours daily rehabilitation and strengthening, prior to discharge home. * Debility - PT/OT/ST. * Pain - Tylenol 500mg q6 prn. * Bowel - senna/colace 2 tablets bid, Dulcolax 10mg pr x 1 prn, MOM 30mL po x 1 prn. * DVT prophyalxis - Heparin 5000 units q12. * Hypertension - Lisinopril 10mg daily, Amlodipine 5mg daily, Hydralazine 5mg iv q6 prn. * Stroke - Plavix 75mg daily, Aspirin 81mg daily thru 12/11/2024. * Hyperlipidemia - Atorvastatin 40mg qhs. * OA - Plaquenil 200mg bid. * Seizure - EEG showed encephalopathy, off Keppra. * Skin irritation - Calmoseptine topical bid. * Tinea Corporis - Nystatin powder topical bid.
[2024-12-15 13:53] VITALS: BMI 27.4
[2024-12-15 18:00] VITALS: BP 154/72; PULSE 76; RESP 16; TEMP 36.6; O2SAT 96
--- NOTE | 2024-12-15 20:05 | CASEMGMT ---
Social Work no response from [facility]. SW phoned dtr, Lorraine, to inquire about referring to additional [facility] agencies to determine who can accept [facility]. Dtr agreeable. SW to provide options of accepting agencies to dtr and dtr can select preference. Dtr agreeable. SW sent referrals to12 [facility] agencies with inquiry via [employer]. Jessica RAMOSW
[2024-12-15 21:00] VITALS: RESP 16; O2SAT 96
[2024-12-15 22:35] VITALS: BMI 27.4
[2024-12-16 01:30] VITALS: RESP 15; O2SAT 95
[2024-12-16 05:26] VITALS: BP 123/83; PULSE 70; RESP 15; TEMP 36.5; O2SAT 96
[2024-12-16 06:00] VITALS: BMI 27.6
[2024-12-16] MEDS: Heparin Injection (Vial) 5,000 UNIT/ML VIAL 5000 UNIT SC ×2 (07:42→20:56)
[2024-12-16] MEDS: Senna/Docusate Sodium 1 Tablet 2 TABLET PO ×2 (07:43→20:57)
[2024-12-16 14:37] VITALS: BMI 27.6
[2024-12-16 18:00] VITALS: BP 112/48; PULSE 69; RESP 16; TEMP 35.1; O2SAT 95
[2024-12-17 01:23] VITALS: BMI 27.6
[2024-12-17 06:00] VITALS: BP 140/57; PULSE 65; RESP 16; TEMP 36.9; O2SAT 97
[2024-12-17] MEDS: Heparin Injection (Vial) 5,000 UNIT/ML VIAL 5000 UNIT SC ×2 (08:01→21:10)
--- NOTE | 2024-12-17 10:08 | CASEMGMT ---
Social Work VALERIE phoned dtrNathalia, to update that out of the 14 [facility] agencies SW referred to, pt is either OON, out of service area, or cannot accept. Nathalia inquired about [facility]. VALERIE informed pt is out of their service area. VALERIE offered outpatient therapy if family could transport pt. Nathalia agreed and inquired about [facility]. VALERIE agreed that is an option as they have ST, and SW to place the referral. Nathalia appreciative and they will transport pt tomorrow about 1300. - VALERIE faxed referral to [facility] for PT/OT/ST. Plan: DC home with family 12/18, [facility] PT/OT/ST Jessica Ewing PATCH PRESS OPERATOR [employer]
[2024-12-17 13:31] VITALS: BMI 27.6
--- NOTE | 2024-12-17 14:55 | PN_ITS ---
Subjective Subjective Afebrile Heart rate is within normal limits Blood pressure over the past 48 hours has ranged from 112/48 to 154/72. Maintaining appropriate oxygen saturation on room air while awake and is on 2 L/min of nasal O2 when she is sleeping. No lab done since 11/30. Denies cephalgia, dizziness, lightheadedness, vertigo, chest pain, shortness of breath, cough, nausea/vomiting/abdominal pain, dysuria and calf tenderness. Therapy notes were reviewed. Objective Data Objective Data Vital Signs: Vital Signs Temp Pulse Resp BP Pulse Ox O2 Del Method O2 Flow Rate 98.5 F 65 16 140/57 H 97 Room Air 2 12/17/24 06:00 12/17/24 06:00 12/17/24 06:00 12/17/24 06:00 12/17/24 06:00 12/17/24 06:00 12/16/24 05:26 FiO2 21 11/20/24 21:55 Oxygen Flow Rate (L/min) 2 Oxygen Delivery Method Room Air Weight: 155 lb 10.342 oz Body Mass Index (BMI) 27.6 Intake & Output: Intake and Output for Last 24 Hours 12/15/24 12/16/24 12/17/24 23:59 23:59 23:59 Intake Total 900 / 900 1230 / 1380 690 / 690 Output Total 800 / 800 1050 / 1250 950 / 950 Balance 100 / 100 180 / 130 -260 / -260 Lab / Micro Data 11/30/24 08:43 11/30/24 08:43 Micro: Microbiology 11/20/24 18:50 Urine Catheter - Catheter Urine Culture - Final Proteus hauseri 11/20/24 16:10 Stool Stool Occult Blood (ROSALBA) - Final Physical Exam Const alert General Appearance: cooperative Resp normal respiratory effort, no use of accessory muscles and clear to auscultation bilaterally Effort and Inspection: able to speak in complete sentences Auscultation: clear to auscultation bilaterally Cardio regular rate, regular rhythm, no murmurs, no rub and no gallops GI normal to inspection, nondistended, normoactive bowel sounds and non-tender GI Narrative: no guarding with palpation Palpation: soft Extremity no clubbing, cyanosis or edema Assessment & Plan Assessment/Plan (1) Debility: (2) S/P stroke due to cerebrovascular disease: (3) 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: (4) Dysarthria: (5) Hemiplegia affecting right dominant side: QUALIFIERS: Hemiplegia type: flaccid Hemiplegia etiology: late effect of cerebrovascular disease Cerebrovascular disease type: cerebral infarction Qualified Code(s): I69.351 - Hemiplegia and hemiparesis following cerebral infarction affecting right dominant side (6) Aphasia complicating stroke: (7) Essential hypertension: (8) Hyperlipidemia: QUALIFIERS: Hyperlipidemia type: unspecified Qualified Code(s): E 78.5 - Hyperlipidemia, unspecified (9) Macrocytic anemia: (10) Encephalitis: (11) Rheumatoid arthritis: QUALIFIERS: Rheumatoid arthritis location: unspecified site R heumatoid factor presence: unspecified presence Qualified Code(s): M06.9 - Rheumatoid arthritis, unspecified (12) Overweight (BMI 25.0-29.9): (13) Mild aortic stenosis: (14) Stage 3 chronic kidney disease: QUALIFIERS: Chronic kidney disease stage 3 subtype: stage 3b (GFR 30-44) Qualified Code(s): N18.32 - Chronic kidney disease, stage 3b (15) Altered mental status: QUALIFIERS: Altered mental status type: stupor Qualified Code(s): R40.1 - Stupor (16) Seizure: (17) Adverse drug reaction: QUALIFIERS: Encounter type: initial encounter Qualified Code(s): T50.905A - Adverse effect of unspecified drugs, medicaments and biological substances, initial encounter PLAN: Plan 1. Plan discharge home tomorrow with outpatient therapy at [facility] 2. Will need home oxygen at 2 L/min anytime she is sleeping. 3. Needs a formal sleep study postdischarge from rehab.......... she desaturates with sleep. 4. Check a BMP and CBC today. 5. I left a message on the home phone for Nathalia to call me with a pharmacy Charges/Coding Visit Charges Inpatient E&M: 13285 [facility] Hosp L1
[2024-12-17 16:12] LABS: Hematocrit 31.0 % (37-47); Hemoglobin 9.9 g/dL (12.0-15.0); Mean Corp Hgb Conc 31.9 g/dL (32-36); Mean Corpuscular Volume 102.3 fL (81-99); Mean Platelet Vol. 9.6 fl (6.2-12.0); Platelet Count 240 K/mm3 (150-450); RBC Distribution Width CV 12.0 % (11.6-14.6); RBC Distribution Width SD 45.1 fl (35.1-43.9); Red Blood Count 3.03 M/mm3 (4.2-5.4); White Blood Count 6.5 K/mm3 (4.4-11.0)
[2024-12-17 17:21] LABS: Anion Gap 10 (5-15); BUN 33 mg/dL (4-19); BUN/Creat Ratio 23.0 RATIO (10-20); Calcium,Total 9.4 mg/dL (7.6-11.0); Carbon Dioxide 25.3 mmol/L (21.0-32.0); Chloride 105 mmol/L (98-108); Estimated Creatinine Clearance 29.07 ml/min (50-250); Glucose 100 mg/dL (70-99); Magnesium 2.1 mg/dL (1.5-2.2); Potassium 4.4 mmol/L (3.3-5.1)
[2024-12-17 17:26] VITALS: BP 130/66; PULSE 67; RESP 16; TEMP 37; O2SAT 98
[2024-12-17] MEDS: Senna/Docusate Sodium 1 Tablet 2 TABLET PO (21:10)
[2024-12-17 21:50] VITALS: PULSE 62; O2SAT 96
[2024-12-18 04:47] VITALS: BP 139/63; PULSE 72; RESP 16; TEMP 36.8; O2SAT 97
[2024-12-18] MEDS: Heparin Injection (Vial) 5,000 UNIT/ML VIAL 5000 UNIT SC (08:00)
[2024-12-18] MEDS: Senna/Docusate Sodium 1 Tablet 2 TABLET PO (08:00)
--- NOTE | 2024-12-18 10:10 | CASEMGMT ---
Social Work ordered overnight trending pulse ox. Pt desaturated and requires overnight O2. SW sent referral to [facility] via [facility] with script and testing. Received call from [facility] and scheduled first visit with family. D/t pt's insurance, [facility], [facility] offers HHC, if elected. Family elected HHC. SOC 12/28. Jessica Ewing MSW ENGINEERING GROUP LEADER
--- NOTE | 2024-12-18 12:27 | PCM.DC.SUM ---
Providers Date of Admission: 11/19/24 Date of Discharge: 12/18/24 Primary Care Physician: Dr. Eric West MD teleneurology Reason For Visit: STROKE Diagnosis Discharge Diagnosis (1) Debility: Status: Acute Code(s): R53.81 - Other malaise (2) S/P stroke due to cerebrovascular disease: Status: Acute Code(s): Z86.73 - Personal history of transient ischemic attack (TIA), and cerebral infarction without residual deficits Plan: Follow-up has been scheduled with Eli Dean NP from neurology. The strokes were more likely than not embolic due to the fact that they involve both sides of the brain. She completed a event monitor while on rehab and family was to mail the monitor back. She will need to follow-up with cardiology if the monitor shows any atrial fibrillation. She is being discharged on dual antiplatelet agents. If she has paroxysmal atrial fibrillation she should likely be transitioned to Plavix and an anticoagulant. (3) 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: Status: Acute Code(s): I63.9 - Cerebral infarction, unspecified; R41.89 - Other symptoms and signs involving cognitive functions and awareness Plan: I suspect she may have underlying cognitive deficit, possibly due to dementia. Family has been noticing a decline in memory over the past year.....but, this could also be due to the fact that she can not hear so she does not know what is being said to her. (4) Dysarthria: Status: Acute Code(s): R47.1 - Dysarthria and anarthria (5) Hemiplegia affecting right dominant side: Status: Acute Code(s): G81.91 - Hemiplegia, unspecified affecting right dominant side Qualifiers: Hemiplegia type: flaccid Hemiplegia etiology: late effect of cerebrovascular disease Cerebrovascular disease type: cerebral infarction Qualified Code(s): I69.351 - Hemiplegia and hemiparesis following cerebral infarction affecting right dominant side Plan: Will continue therapy at [facility] as an OP post DC. (6) Aphasia complicating stroke: Status: Acute (7) Altered mental status: Status: Acute Code(s): R41.82 - Altered mental status, unspecified Qualifiers: Altered mental status type: stupor Qualified Code(s): R40.1 - Stupor Plan: Mental status was altered at admission to rehab due to stroke. While on Cefepime for UTI she became comatose and had seizure activity. Repeat imaging of the brain was unchanged. Sx resolved with discontinuation of Cefepime. Keppra was discontinued 1 week after Cefepime was discontinued. (8) Essential hypertension: Status: Chronic Code(s): I10 - Essential (primary) hypertension Plan: Well-controlled on amlodipine 5 mg daily and lisinopril 10 mg daily at the time of discharge from rehab. (9) Hyperlipidemia: Status: Chronic Code(s): E78.5 - Hyperlipidemia, unspecified Qualifiers: Hyperlipidemia type: unspecified Qualified Code(s): E78.5 - Hyperlipidemia, unspecified Plan: She is being discharged on Lipitor 40 mg p.o. daily which is a high dose statin. (10) Macrocytic anemia: Status: Chronic Code(s): D53.9 - Nutritional anemia, unspecified Plan: B12 and folate were normal while on rehab. TSH within the past year was reportedly normal. I suspect the anemia is secondary to chronic renal failure stage IIIb. Hemoccult stool was negative during her admission to rehab. (11) Encephalitis: Status: Resolved Code(s): G04.90 - Encephalitis and encephalomyelitis, unspecified Plan: W/U at previous hospital in August of 2024 was negative for a infectious cause of encephalitis. (12) Rheumatoid arthritis: Status: Chronic Code(s): M06.9 - Rheumatoid arthritis, unspecified Qualifiers: Rheumatoid arthritis location: unspecified site Rheumatoid factor presence: unspecified presence Qualified Code(s): M06.9 - Rheumatoid arthritis, unspecified Plan: Continue Plaquenil 200 mg twice daily. (13) Overweight (BMI 25.0-29.9): Status: Chronic Code(s): E66.3 - Overweight (14) Mild aortic stenosis: Status: Chronic Code(s): I35.0 - Nonrheumatic aortic (valve) stenosis (15) Left ventricular hypertrophy: Status: Chronic Code(s): I51.7 - Cardiomegaly (16) Grade I diastolic dysfunction: Status: Chronic Code(s): I51.89 - Other ill-defined heart diseases (17) Seizure: Status: Resolved Code(s): R56.9 - Unspecified convulsions Plan: EEG showed no seizure activity. It showed diffuse slowing/disorganization. I witnessed focal motor seizure of the LUE when she was on Cefepime and comatose. Keppra was discontinued 1 week after the cefepime was discontinued. She has had no further seizure activity. (18) Adverse drug reaction: Status: Resolved Code(s): T50.905A - Adverse effect of unspecified drugs, medicaments and biological substances, initial encounter Qualifiers: Encounter type: initial encounter Qualified Code(s): T50.905A - Adverse effect of unspecified drugs, medicaments and biological substances, initial encounter Plan: Neurotoxicity secondary to cefepime. Resolved with discontinuation of the drug. (19) Presbycusis of both ears: Status: Chronic Code(s): H91.13 - Presbycusis, bilateral Plan: I recommend that she have her hearing tested and possibly obtain hearing aids to improve her ability to understand what is being said to her and possibly her memory. (20) Anemia in chronic kidney disease: Status: Chronic Code(s): N18.9 - Chronic kidney disease, unspecified; D63.1 - Anemia in chronic kidney disease Qualifiers: Chronic kidney disease stage: stage 3 (moderate) Chronic kidney disease stage 3 subtype: stage 3b (GFR 30-44) Qualified Code(s): N18.32 - Chronic kidney disease, stage 3b; D63.1 - Anemia in chronic kidney disease (21) Urinary incontinence: Status: Acute Code(s): R32 - Unspecified urinary incontinence Qualifiers: Urinary Incontinence type: unspecified incontinence Qualified Code(s): R32 - Unspecified urinary incontinence (22) Sleep related hypoxia: Status: Chronic Code(s): G47.34 - Idiopathic sleep related nonobstructive alveolar hypoventilation Plan: Discharged on oxygen 2 L/min anytime she is sleeping. She should have a formal sleep study scheduled as an outpatient. This can be done at [facility] and the referral has already been completed. (23) Stage 3 chronic kidney disease: Status: Chronic Code(s): N18.30 - Chronic kidney disease, stage 3 unspecified Qualifiers: Chronic kidney disease stage 3 subtype: stage 3b (GFR 30-44) Qualified Code(s): N18.32 - Chronic kidney disease, stage 3b (24) Atrophy of right kidney: Status: Chronic Code(s): N26.1 - Atrophy of kidney (terminal) Plan 1. Discharge home with outpatient therapy at [facility]. 2. Oxygen 2 L/min arranged for home delivery and she is to wear it anytime she is sleeping. Sleep lab will call her to schedule an overnight sleep study. They have the referral. 3. She will follow-up with Eli Dean from neurology. An appointment has been scheduled for her. 4. She will also follow-up with Dr. Eric West for primary care. 5. Would repeat a lipid panel, liver panel and CPK in 2 weeks. She is now on a high intensity statin, atorvastatin 40 mg nightly. 6. The family was given the event monitor to mail back. If there is any atrial fibrillation she will need to follow-up with cardiology/neurology to discuss anticoagulation. Medications at Discharge Home Medications acetaminophen 650 mg tablet,extended release (Arthritis Pain Relief (acetaminophen) ER) 650 mg PO Q8H PRN pain 11/19/24 aspirin 81 mg chewable tablet 1 tab PO DAILY heart 11/19/24 amlodipine 5 mg tablet 5 mg PO DAILY blood pessure #30 tabs 12/18/24 atorvastatin 40 mg tablet 40 mg PO QHS #30 tabs 12/18/24 clopidogrel 75 mg tablet (Plavix) 75 mg PO DAILY AFib #30 tabs 12/18/24 hydroxychloroquine 200 mg tablet 200 mg PO BID arthritis #60 tabs 12/18/24 lisinopril 10 mg tablet 10 mg PO DAILY #30 tabs 12/18/24 Hospital Course Operations None Procedures 2-D Echocardiogram (She had a transthoracic echocardiogram done at the previous hospital that showed an EF of 60 to 65%, mild LVH and grade 1 diastolic dysfunction. There was mild aortic stenosis, mild left atrial enlargement and mild TR.) Summary of Care Provided Minutes Spent on Discharge: 45 Hospital Course: Melisa Mosher is an 79-year-old female who was admitted to acute inpatient rehab unit at [facility] on 11/19/2024 after being diagnosed with multiple embolic strokes involving the left basal ganglia, the right internal capsule posterior limb, the right basal ganglia and the left putamen. She was not a candidate for thrombolytics. She came to us on dual antiplatelet agents including Plavix and aspirin. Lipid panel prior to admission to rehab showed an LDL of 139, HDL of 87 and a total cholesterol of 238. She came to was on 20 mg of atorvastatin daily but this was increased to 40 mg while on rehab. Echocardiogram at the previous hospital showed a normal ejection fraction of 60 to 65%, mild LVH, grade 1 diastolic dysfunction, mild aortic stenosis, mild left atrial enlargement and mild tricuspid regurgitation. A heme positive stool was checked on rehab and was negative. She has a mild chronic macrocytic anemia which I suspect is due to chronic renal failure stage IIIb. B12 and folate were both normal on rehab. TSH was previously checked within the past year and was within normal limits. At the time of admission her urine was foul-smelling and she had some dysuria. A UA obtained by straight cath showed 5-10 white blood cells with 1+ bacteria. White blood cell count was mildly elevated at 10.2. The urine culture grew Proteus hauseri which was resistant to ampicillin and Macrobid. It was only intermediately sensitive to ceftriaxone. She stated that she was allergic to penicillin but did not know the reaction. She was placed on cefepime, renally dosed. She experienced neurotoxicity while on cefepime and became minimally responsive/comatose with focal motor seizures. Cefepime was discontinued and she was started on Keppra for focal motor seizures. An EEG was obtained that showed no seizure activity but did show diffuse generalized slowing. Over the next few days she gradually improved and at the time of discharge from rehab she is very alert and appropriate. She received 1 week of Keppra following discontinuation of the cefepime and then Keppra was discontinued. She has had no further seizure activity. Another complication while on rehab was acute on chronic renal failure secondary to poor intake/dehydration. This resolved with intravenous hydration. Lab 1 day prior to discharge showed a normal white blood cell count of 6.5 and a stable hemoglobin at 9.9 with an MCV of 102.3. Platelets were within normal limits. Sodium is 140 and the potassium is 4.4. The BUN is 33 with a creatinine of 1.43 which is within her baseline. Magnesium was 2.1 and the calcium was within normal limits. Melisa did very well with therapy but will need ongoing therapy at discharge. The director of social services arranged for home therapy therapy with [facility] and this will start on December 28. Melisa had an abnormal overnight trending pulse ox with desaturations while on rehab. We have been using 2 L/min nasal O2 anytime she is sleeping. A referral was done to the sleep lab for an overnight split sleep study in the sleep lab is going to call her to arrange for this. She had a 30-day event monitor which was completed while she was on rehab and the family is sending it back. When the results of this heart monitor are available if there is any atrial fibrillation she will need to be referred to cardiology to discuss anticoagulation/treatment. Melisa is going to follow-up with neurology postdischarge from rehab and has a scheduled appointment with Eli Dean NP who is associated with Dr. Andrade Waite. I suspect Melisa may have some underlying dementia. Family has noticed over the past year that her memory is declining. I suspect that part of the memory issue is due to severe presbycusis. She does not hear what we are saying to her and we have to repeat ourselves multiple times. I suspect she can not remember some of what has been said to her because she did not hear what was said. I recommended to Melisa and her family that she having her hearing tested and possibly consider hearing aids. Melisa will need a Lipid panel, liver profile and a CPK in 1-2 weeks post DC from rehab. BP is well controlled at DC with amlodipine 5 mg daily and lisinopril 10 mg daily. While Melisa was on rehab I obtained records from [facility] where she was seen for encephalitis in August 2024. The only abnormal finding on the CSF was increased protein. All bacterial cultures and viral studies were negative. She was treated with 8 days of vancomycin and Rocephin and several days of acyclovir. The notes from [facility] jad Farfan states that she improved back to her baseline and at baseline was considered to have dementia. She has not been evaluated by neurology for dementia and is currently not on any treatment. Physical Exam Const alert Constitutional Narrative: Slow to respond to questions. Feeding herself and able to maintain upright posture in the WC. She was able to stand and use the pivot disc today. General Appearance: cooperative HEENT moist oral mucous membranes HEENT Narrative: MM are moist today Eyes PERRL and EOMs intact bilaterally Eyes Narrative: processing thoughts faster today and speech has a better johnnie. Neck supple Neck Narrative: Denies cephalgia. Resp normal respiratory effort and clear to auscultation bilaterally Resp Narrative: initially had a few coarse crackles in the bases but, this almost completely cleared after a few deep breaths. No cough with deep breathing. Effort and Inspection: Negative for tachypneic Cardio regular rate, regular rhythm, no rub and no gallops Cardio Narrative: No ectopy GI normal to inspection, nondistended, normoactive bowel sounds, soft to palpation, non-tender and non-distended GI Narrative: No guarding with palpation. Last bowel movement was yesterday. Extremity no calf tenderness General Extremity: Negative for edema Skin General Skin Exam: no breakdown Rashes: no rashes Neuro Neuro Narrative: Alert today and able to follow simple commands. Able to hold both arms up with no drift and both legs up with no drift. Minimal dysarthria. did not cough when eating and she is feeding herself. Good plantarflexion and dorsiflexion of the left foot. Decreased dorsiflexion of the right foot and mild decrease in plantarflexion. No tremors. No myoclonic jerks. No witnessed seizure activity. Today she knows that I am her doctor and she recognizes me and smiles. Psych cooperative and affect normal Psych Narrative: Making good eye contact. She is calm. No restlessness. Slow to process information but improving every day.. Weight / BMI Weight Weight: 155 lb 10.342 oz Body Mass Index (BMI) 27.6 ABG / Lab / Microbiology Data 12/17/24 16:05 12/17/24 16:05 Laboratory: Laboratory Results - last 24 hr 12/17/24 16:05: WBC 6.5, RBC 3.03 L, Hgb 9.9 L, Hct 31.0 L, MCV 102.3 H, MCH 32.7 H, MCHC 31.9 L, RDW Std Deviation 45.1 H, RDW Coeff of Jennifer 12.0, Plt Count 240, MPV 9.6, Sodium 140, Potassium 4.4, Chloride 105, Carbon Dioxide 25.3, Anion Gap 10, BUN 33 H, Creatinine 1.43 H, Estim Creat Clear Calc 29.07 L, Est GFR (MDRD) Non-Af 37 L, BUN/Creatinine Ratio 23.0 H, Glucose 100 H, Calcium 9.4, Magnesium 2.1 Microbiology: Microbiology 11/20/24 18:50 Urine Catheter - Catheter Urine Culture - Final Proteus hauseri 11/20/24 16:10 Stool Stool Occult Blood (ROSALBA) - Final D/C Instructions Discharge Activity: May Shower and Use Walker Weight Bearing Status: Full weight bearing Keep extremity elevated above heart level: Legs Call your doctor if you observe: Fever of 101 or Higher, Inability to urinate, Shortness of breath, Dizziness, Fainting spells, Swelling in the ankles, Chest pain, Increased palpitations (irregular heartbeat), Calf discomfort, Uncontrolled pain and - (STROKE symptoms: facial droop, slurred speech, inability to get words out, weakness on 1 side of the body and not the other, numbness on 1 side of the body and not the other, inability to maintain your balance sitting or standing, vertigo. ) DC O2, CPAP, BIPAP Needs Home O2 Discharge instructions: Yes Type of respiratory needs?: Oxygen Oxygen frequency: With Sleeping Oxygen liters per minute when sleepin DC home with Oxygen: Yes Home O2 MD Review: I have reviewed the oxygen testing, and the patient qualifies for home oxygen equipment and portability. The patient is mobile in the home and the community. Pending Tests Upon Discharge: none When: see appts listed later in this document. will be following up with Dr. West and with Eli Dean NP from neurology. Meaningful Use Info Meaningful Use Meaningful Use Diagnoses (Choose all that apply): Ischemic CVA CVA Therapy Assessed for PT,OT and/or ST?: Yes Ischemic Stroke Antithrombotic order at d/c?: Yes Dx of Atrial fib/flutter?: No Anticoagulant at discharge?: No Reason anticoagulant not ordered: Treatment not Indicated Statins at discharge?: Yes Primary Dx Acute Ischemic CVA?: Yes IV thrombolytic ordered during stay?: No Reason IV thrombolytic not ordered: Procedure not Indicated Discharge Plan Admission Admit Date/Time: 11/19/24 15:13 Primary Reason for Your Visit: post stroke debility Attending Provider: Melisa Thomson Primary Care Provider: Eric West Consulting Providers: Rebecca Banks; Coral Fisher; Jocelyn Mora; Cheikh Krueger; Casey Faye; Ernst Colin; EDUARDO COBB; Ronda Marquez; Mami Vasquez; Valentín Rubi; Kassidy Kapoor Instructions Patient Instructions: Hypertension Stroke Link, Discharge Instructions for Stroke Additional Instructions / Restrictions: 1. We are sending you home with oxygen because your oxygen drops at night when you are sleeping. Low oxygen in the blood can cause a problem with the rhythm of the heart called atrial fibrillation. Atrial fibrillation increases your risk for stroke approximately 5 times normal. While you are on rehab you had a heart monitor that was just recently sent back to have cardiology review it. This will tell us if you have been having episodes of atrial fibrillation. If you have atrial fibrillation you will likely need to start an anticoagulant to prevent additional strokes going forward. This can be discussed with the graphite disk assembler at the follow up appt you will have to discuss the results of the heart monitor. Ask Dr. West for a referral to a graphite disk assembler once the results of the heart monitor are available. 2. You have been taking a stool softener twice daily while on rehab. I did not continue this at discharge. If you have chronic problems with constipation I would start either MiraLAX, Citrucel or Metamucil 1-2 times daily to keep the stool soft and prevent constipation. 3. You are chronically anemic. That means your red blood cell count is low. I suspect this is due to the chronic kidney disease that you have, probably from longstanding poorly treated hypertension. We checked your stool for blood while on rehab and it was negative. 4. You have a follow-up appointment scheduled with your primary care doctor and also with Eli Dean who is a nurse practitioner who works with the neurologist in [place]. The neurologist's name is Dr. Andrade Waite. You need to see a neurologist to help make sure we are doing everything possible to prevent additional strokes going forward. I would also like them to evaluate you for possible early dementia. Your memory is impaired and your family tells me that they have noticed a decline in your memory for at least the past year. Sometimes as we get older we get diagnosed with dementia when the problem is actually that you can not hear and so you repeat things and misinterpret what is being said to you and the other people just think you are confused. Your hearing loss is severe. You may want to consider getting hearing aids. when your family talks with you they should be standing in front of you so that you can see their mouth.......most people who are hard of hearing can read lips somewhat. People should not talk to you when they are standing behind you or when they are in a different room. 5. You had a bad drug reaction to a medication called Cefepime. This is an antibiotic that you were taking for a urinary tract infection. It made you comatose and caused seizure activity. You should never take this medication again. We have listed it as an allergy on your chart. You should consider getting a medic alert bracelet that says you are allergic to Cefipime. 6. It has been a pleasure meeting you Miss Melisa. If you or your family have any questions after you leave drug rehab please do not hesitate to call me. OFFICE: [phone] CELL: [phone] NURSES STATION ON REHAB: [phone] Discharge Orders/Prescriptions Prescriptions: New atorvastatin 40 mg Tablet 40 mg PO QHS Qty: 30 0RF lisinopril 10 mg Tablet 10 mg PO DAILY Qty: 30 0RF Continued aspirin 81 mg tablet,chewable 1 tab PO DAILY acetaminophen [Arthritis Pain Relief (acetam)] 650 mg tablet extended release 650 mg PO Q8H PRN (Reason: pain) clopidogrel [Plavix] 75 mg tablet 75 mg PO DAILY Qty: 30 0RF amlodipine 5 mg tablet 5 mg PO DAILY Qty: 30 0RF hydroxychloroquine 200 mg tablet 200 mg PO BID Qty: 60 0RF Discontinued atorvastatin [Lipitor] 20 mg tablet 20 mg PO QHS lisinopril 20 mg tablet 20 mg PO DAILY Referrals / Follow Up: Eric West MD [Primary Care Provider, Medical] - 12/21/24 2:45 pm Eli Dean NP-C [Med Staff - [facility] Practice Prof, Neurology] - 12/28/24 9:30 am Disposition Disposition (needs filled in before D/C Order can be placed): Home, Self Care Charges/Coding Visit Charges Inpatient E&M: 14467 Disch Hosp >30min
[2024-12-18 13:46] VITALS: BMI 27.6
[2024-12-18 13:47] VITALS: BP 139/63; PULSE 72; RESP 16; TEMP 36.8; O2SAT 97
--- NOTE | 2024-12-18 13:48 | NURSING ---
discharged home with family. discharged instruction, medications and appointments reviewed with pt and family. denies questions or concerns
== END 2024-12-18 13:50 | disposition home health service (06) | DRG 57 ==
PROVIDERS: Nurse Practitioner Family; Admitting Provider Internal Medicine; PCP Family Medicine; Referring Provider Internal Medicine; Visit Provider Internal Medicine
DX: I69.351 Hemiplegia and hemiparesis following cerebral infarction affecting right dominant side (principal); N17.9 Acute kidney failure, unspecified; G40.109 Localization-related (focal) (partial) symptomatic epilepsy and epileptic syndromes with simple partial seizures, not intractable, without status epilepticus; N39.0 Urinary tract infection, site not specified; Z16.11 Resistance to penicillins; Z16.39 Resistance to other specified antimicrobial drug; I69.318 Other symptoms and signs involving cognitive functions following cerebral infarction; D63.1 Anemia in chronic kidney disease; E86.0 Dehydration; G47.34 Idiopathic sleep related nonobstructive alveolar hypoventilation; N18.32 Chronic kidney disease, stage 3b; F03.90 Unspecified dementia, unspecified severity, without behavioral disturbance, psychotic disturbance, mood disturbance, and anxiety; M06.9 Rheumatoid arthritis, unspecified; I08.2 Rheumatic disorders of both aortic and tricuspid valves; I12.9 Hypertensive chronic kidney disease with stage 1 through stage 4 chronic kidney disease, or unspecified chronic kidney disease; I69.320 Aphasia following cerebral infarction; D53.9 Nutritional anemia, unspecified; I69.322 Dysarthria following cerebral infarction; E78.5 Hyperlipidemia, unspecified; I69.392 Facial weakness following cerebral infarction; H91.13 Presbycusis, bilateral; Z79.899 Other long term (current) drug therapy; N28.1 Cyst of kidney, acquired; Z79.02 Long term (current) use of antithrombotics/antiplatelets; T36.1X5A Adverse effect of cephalosporins and other beta-lactam antibiotics, initial encounter; R32 Unspecified urinary incontinence; B96.4 Proteus (mirabilis) (morganii) as the cause of diseases classified elsewhere; N26.1 Atrophy of kidney (terminal)
CPT/HCPCS: 36415; 70450; 71045; 71250; 76770; 80048; 80053; 81001; 82274; 82607; 82746; 82962; 83735; 84100; 85025; 85027; 85652; 86140; 87077; 87086; 87088; 87186; 92507; 92523; 92610; 94668; 94762; 95819; 97110; 97112; 97116; 97162; 97167; 97530; 97535; 97760; 97802; A4216